=== PATIENT | male | born 1945 | race Caucasian/White ===

== ENCOUNTER 2016-10-20 11:29 | Inpatient (IN) | payer OTHER, MEDICARE ==
[~2016-10-20] VITALS: Ht 182.9 cm; Wt 103.0 kg
[~2016-10-20 11:29] MED LIST: AMLO2.5T PO; ASPI81TA44 PO; BENZ100C15 PO; GUAI12003 PO; LEVO750T31 PO; OXYC1TAB9 PO; PROAIR HFA8.5 GM IH; Promethazine Hcl/Codeine PO
--- NOTE | 2016-10-20 12:18 | PHYS DOC ---
Past Medical History Past Medical History: No Pertinent History Past Surgical History: Other Additional Past Surgical Histo: jaw, r shoulder, r femur Alcohol Use: Occasionally Drug Use: None Adult General Chief Complaint Chief Complaint: SHORTNESS OF BREATH HPI HPI Patient is a 70 year old male who presents with in productive cough. He states this all started on night when he left work that he was so weak he could hardly function is been having a dry hacking cough. He states over the last several days this time productive. He was seen by his primary care physician and was given cough suppressants and told to follow-up in a few days if not better. He denies any fevers chills nausea vomiting but does have a productive cough. He denies any history of tobacco abuse. He has had a AAA repair with a stent in April 2016. So hadn't intermittent chest discomfort earlier today that lasted for a few seconds and then resolved. Currently does not have any chest pain. But he does complain about generalized weakness and dyspnea when he tries to get from one chair to another home. Review of Systems Review of Systems Constitutional: Denies fever or chills [] Eyes: Denies change in visual acuity, redness, or eye pain [] HENT: Denies nasal congestion or sore throat [] Respiratory: As if her cough and shortness of breath. Cardiovascular: No additional information not addressed in HPI [] GI: Denies abdominal pain, nausea, vomiting, bloody stools or diarrhea [] : Denies dysuria or hematuria [] Musculoskeletal: Denies back pain or joint pain [] Integument: Denies rash or skin lesions [] Neurologic: Denies headache, focal weakness or sensory changes [] Endocrine: Denies polyuria or polydipsia [] Current Medications Current Medications Current Medications Medications (Trade) Dose Ordered Sig/Jael Start Time Stop Time Status Last Admin Dose Admin Iohexol (Omnipaque 300 Mg/ml) 75 ml 1X ONCE 10/20/16 14:30 10/20/16 14:31 DC 10/20/16 15:28 75 ML Allergies Allergies Allergies Coded Allergies Type Severity Reaction Last Updated Verified No Known Drug Allergies 07/23/14 No Physical Exam Physical Exam Constitutional: Well developed, well nourished, no acute distress, non-toxic appearance. [] HENT: Normocephalic, atraumatic, bilateral external ears normal, oropharynx moist, no oral exudates, nose normal. [] Eyes: PERRLA, EOMI, conjunctiva normal, no discharge. [] Neck: Normal range of motion, no tenderness, supple, no stridor. [] Cardiovascular: Tachycardic with a regular rhythm, no murmur [] Lungs & Thorax: Bilateral breath sounds clear to auscultation [] Abdomen: Bowel sounds normal, soft, no tenderness, no masses, no pulsatile masses. [] Skin: Warm, dry, no erythema, no rash. [] Back: No tenderness, no CVA tenderness. [] Extremities: No tenderness, no cyanosis, no clubbing, ROM intact, no edema. [] Neurologic: Alert and oriented X 3, normal motor function, normal sensory function, no focal deficits noted. [] Psychologic: Affect normal, judgement normal, mood normal. [] Current Patient Data Vital Signs Vital Signs Date Time Temp Pulse Resp B/P (MAP) Pulse Ox O2 Delivery O2 Flow Rate FiO2 10/20/16 14:20 78 20 143/74 (97) 97 10/20/16 13:20 Nasal Cannula 2.0 10/20/16 12:21 98.7 98.7 Lab Values Laboratory Tests Test 10/20/16 12:32 White Blood Count 13.6 x10^3/uL (4.0-11.0) H Red Blood Count 4.73 x10^6/uL (4.30-5.70) Hemoglobin 14.4 g/dL (13.0-17.5) Hematocrit 42.0 % (39.0-53.0) Mean Corpuscular Volume 89 fL (79-100) Mean Corpuscular Hemoglobin 30 pg (25-35) Mean Corpuscular Hemoglobin Concent 34 g/dL (31-37) Red Cell Distribution Width 15.5 % (11.5-14.5) H Platelet Count 206 x10^3/uL (140-400) Neutrophils (%) (Auto) 74 % (31-73) H Lymphocytes (%) (Auto) 14 % (24-48) L Monocytes (%) (Auto) 12 % (0-9) H Eosinophils (%) (Auto) 0 % (0-3) Basophils (%) (Auto) 1 % (0-3) Neutrophils # (Auto) 10.1 x10^3uL (1.8-7.7) H Lymphocytes # (Auto) 1.9 x10^3/uL (1.0-4.8) Monocytes # (Auto) 1.6 x10^3/uL (0.0-1.1) H Eosinophils # (Auto) 0.0 x10^3/uL (0.0-0.7) Basophils # (Auto) 0.1 x10^3/uL (0.0-0.2) Prothrombin Time 13.4 SEC (11.7-14.0) Prothrombin Time INR 1.1 (0.8-1.1) D-Dimer (Qi) 2.44 ug/mlFEU (0.00-0.50) H Sodium Level 141 mmol/L (136-145) Potassium Level 3.9 mmol/L (3.5-5.1) Chloride Level 105 mmol/L (98-107) Carbon Dioxide Level 28 mmol/L (21-32) Anion Gap 8 (6-14) Blood Urea Nitrogen 17 mg/dL (8-26) Creatinine 0.9 mg/dL (0.7-1.3) Estimated GFR (Cockcroft-Gault) 82.9 Glucose Level 108 mg/dL (70-99) H Calcium Level 9.5 mg/dL (8.5-10.1) Magnesium Level 2.1 mg/dL (1.8-2.4) Total Bilirubin 0.8 mg/dL (0.2-1.0) Direct Bilirubin 0.3 mg/dL (0.0-0.2) H Aspartate Amino Transferase (AST) 35 U/L (15-37) Alanine Aminotransferase (ALT) 35 U/L (16-63) Alkaline Phosphatase 187 U/L (46-116) H Creatine Kinase 235 U/L (39-308) Creatine Kinase MB (Mass) 1.4 ng/mL (0.0-3.6) Creatine Kinase MB Relative Index 0.6 % (0-4) Troponin I Quantitative < 0.017 ng/mL (0.000-0.055) ZN-Opt-E-Type Natriuretic Peptide 2015 pg/mL (0-124) H Total Protein 7.9 g/dL (6.4-8.2) Albumin 3.4 g/dL (3.4-5.0) Lipase 122 U/L (73-393) Thyroid Stimulating Hormone (TSH) 2.006 uIU/mL (0.358-3.74) Laboratory Tests 10/20/16 12:32 Laboratory Tests 10/20/16 12:32 EKG EKG EKG shows irregular rhythm 310 beats minute with left axis deviation, no ST elevations, T-wave inversions noted in lead 3, QTC 479 ms as interpreted me. Radiology/Procedures Radiology/Procedures [facility] [address] [place] [address] IMAGING REPORT Signed PATIENT: SOFIA CHU ACCOUNT: [id number] : 1945 LOCATION: ER AGE: 70 SEX: M EXAM STATUS: PRE ER ORD. PHYSICIAN: SUSANA BOB MD REASON: soa PROCEDURE: PORTABLE CHEST 1V Indication cough. 2 AP views of the chest were obtained. Comparison is made to an exam 04/23/2016. There is mild cardiomegaly. There is no gross congestive heart failure. Aeration of the left lung has improved relative to the previous exam and there is no significant pleural fluid on today's study in either lung. There is some modest volume loss at the left lung base which may reflect atelectasis or scar. Underlying pneumonia is not entirely excluded. Tortuous thoracic aorta is noted similar to the previous study. IMPRESSION: Mild cardiomegaly. No significant pleural fluid in either lung on today's study. Slight volume loss at the left lung base likely reflects atelectasis or scar. Underlying pneumonia is not entirely excluded DICTATED and SIGNED BY: LAURA FLANAGAN MD DATE: 10/20/16 1257 CC: SUSANA BOB MD; BHAVNA RICHEY PA ~ [facility] [address] [place], [place] [id number] IMAGING REPORT Signed PATIENT: SOFIA CHU ACCOUNT: [id number] : 1945 LOCATION: [address] [place] [address] AGE: 70 SEX: M EXAM STATUS: ADM IN ORD. PHYSICIAN: SUSANA BOB MD REASON: r/o PE PROCEDURE: CT ANGIOGRAPHY CHEST Indication shortness of breath cough. Axial images of the chest were obtained. The examination was targeted for the detection of pulmonary embolus. 75 cc of Omnipaque 300 was administered. MIP images were generated and reviewed. Note is made of a previous CT examination of the chest 07/23/2014. There is a low-density mass off the right kidney compatible with a cyst. An acute or definite significant finding in the upper abdomen is not seen. Moderate-sized hiatus hernia is noted. There is some coronary artery calcification. The thoracic aorta appears unremarkable. There is no significant hilar or mediastinal adenopathy. The study is negative for pulmonary embolus. A dominant soft tissue mass in either lung is not seen. There is volume loss in the left lower lobe and to a lesser extent in the lingula. Some of this may be chronic. Recurrent pneumonia is not entirely excluded. The volume loss and patchy nonsolid opacities in the lingula and left lower lobe are less pronounced than previously. There is, additionally, a patchy nonsolid opacity in the right lower lobe on today's examination suggesting an inflammatory focus. IMPRESSION: Negative study for pulmonary embolus. Patchy nonsolid opacities at the lung bases. The one at the right lung base is new. Pneumonia is suspect at the right lung base. Some of the findings at the left lung base may be chronic and reflective of fibrosis. Recurrent pneumonia at the left lung base is not excluded PQRS Compliance Statement: One or more of the following individualized dose reduction techniques were utilized for this examination: 1. Automated exposure control 2. Adjustment of the mA and/or kV according to patient size 3. Use of iterative reconstruction technique DICTATED and SIGNED BY: LAURA FLANAGAN MD DATE: 10/20/16 160 CC: SUSANA BOB MD; MAYITO FELDMAN MD; MARCOS MARTINEZ ~ Impressions: Dyspnea on exertion Cough History of AAA repair Pneumonia Course & Med Decision Making Course & Med Decision Making Pertinent Labs and Imaging studies reviewed. (See chart for details) She presents with history of shortness of breath, mildly productive cough over the last several days. His white blood cell counts elevated without any bandemia , he does not have a fever his BNP is also elevated. Chest x-ray shows possible infiltrate. D-dimer is elevated. CT angiogram of his chest is pending at this time to rule out a PE. Patient is being admitted to the hospitalist in stable condition this time with the above test pending. Interim orders have been written. Ct angio comes back negative for PE but likely right lower lobe pneumonia. We' ll start Rocephin and a Zithromax. Dragon Disclaimer Dragon Disclaimer This electronic medical record was generated, in whole or in part, using a voice recognition dictation system. Departure Departure Impression: Primary Impression: Dyspnea Disposition: ADMITTED INPATIENT Admitting Physician: Other Condition: STABLE Referrals: BHAVNA RICHEY (PCP) SUSANA BOB MD Oct 20, 2016 12:18
--- NOTE | 2016-10-20 12:41 | EKG ---
[facility] [address] [place] [address] Test Date: 2016-10-20 Test Time: 12:21:33 Pat Name: SOFIA CHU Department: Room: Gender: M Security Operations Manager: : 1945 Requested By: SUSANA BOB Order Number: [id number] Reading MD: Zenobia Paulson Measurements Intervals [place] Rate: 110 P: NC: QRS: -17 QRSD: 98 T: -15 QT: 350 QTc: 479 Interpretive Statements ATRIAL FIBRILLATION LEFTWARD AXIS LOW LIMB LEAD VOLTAGE ABNORMAL ECG RI6.01 Compared to ECG 04/19/2016 17:11:37 No significant changes Electronically Signed On 10-20-2016 21:30:05 CDT by Zenobia Paulson
[2016-10-20 12:45] LABS: BASO # 0.1 x10^3/uL (0.0-0.2); BASO % 1 % (0-3); EOS % 0 % (0-3); HEMOGLOBIN 14.4 g/dL (13.0-17.5); LYMPH # 1.9 x10^3/uL (1.0-4.8); LYMPH % 14 % (24-48); MEAN CORPUSCULAR HEMOGLOBIN 30 pg (25-35); MEAN CORPUSCULAR HGB CONC 34 g/dL (31-37); MEAN CORPUSCULAR VOLUME 89 fL (79-100); MONO % 12 % (0-9); NEUT % 74 % (31-73); PLATELET COUNT 206 x10^3/uL (140-400); RED BLOOD COUNT 4.73 x10^6/uL (4.30-5.70); RED CELL DISTRIBUTION WIDTH 15.5 % (11.5-14.5); WHITE BLOOD COUNT 13.6 x10^3/uL (4.0-11.0)
[2016-10-20 12:54] LABS: INR 1.1 (0.8-1.1); PROTHROMBIN TIME PATIENT 13.4 SEC (11.7-14.0)
[2016-10-20 12:58] LABS: CALCIUM 9.5 mg/dL (8.5-10.1); CREATININE 0.9 mg/dL (0.7-1.3); GFR 82.9; POTASSIUM 3.9 mmol/L (3.5-5.1)
--- NOTE | 2016-10-20 13:02 | RAD ---
Indication cough. 2 AP views of the chest were obtained. Comparison is made to an exam 04/23/2016. There is mild cardiomegaly. There is no gross congestive heart failure. Aeration of the left lung has improved relative to the previous exam and there is no significant pleural fluid on today's study in either lung. There is some modest volume loss at the left lung base which may reflect atelectasis or scar. Underlying pneumonia is not entirely excluded. Tortuous thoracic aorta is noted similar to the previous study. IMPRESSION: Mild cardiomegaly. No significant pleural fluid in either lung on today's study. Slight volume loss at the left lung base likely reflects atelectasis or scar. Underlying pneumonia is not entirely excluded
[2016-10-20 13:04] LABS: ALBUMIN 3.4 g/dL (3.4-5.0); DIRECT BILIRUBIN 0.3 mg/dL (0.0-0.2); MAGNESIUM 2.1 mg/dL (1.8-2.4); TOTAL BILIRUBIN 0.8 mg/dL (0.2-1.0); TOTAL PROTEIN 7.9 g/dL (6.4-8.2)
[2016-10-20 13:28] LABS: CKMB MASS 1.4 ng/mL (0.0-3.6)
[2016-10-20] MEDS ORDERED: IOHEXOL 300 MG/ML 75 ML VIAL IV ONE (14:30)
[2016-10-20] MEDS ORDERED: ONDANSETRON PF 4 MG/2 ML VIAL. IV PRN (14:45)
[2016-10-20] MEDS ORDERED: CONTRAST GIVEN MC PRN (14:45)
[2016-10-20 16:05] VITALS: BP 163/74
--- NOTE | 2016-10-20 16:18 | RAD ---
Indication shortness of breath cough. Axial images of the chest were obtained. The examination was targeted for the detection of pulmonary embolus. 75 cc of Omnipaque 300 was administered. MIP images were generated and reviewed. Note is made of a previous CT examination of the chest 07/23/2014. There is a low-density mass off the right kidney compatible with a cyst. An acute or definite significant finding in the upper abdomen is not seen. Moderate-sized hiatus hernia is noted. There is some coronary artery calcification. The thoracic aorta appears unremarkable. There is no significant hilar or mediastinal adenopathy. The study is negative for pulmonary embolus. A dominant soft tissue mass in either lung is not seen. There is volume loss in the left lower lobe and to a lesser extent in the lingula. Some of this may be chronic. Recurrent pneumonia is not entirely excluded. The volume loss and patchy nonsolid opacities in the lingula and left lower lobe are less pronounced than previously. There is, additionally, a patchy nonsolid opacity in the right lower lobe on today's examination suggesting an inflammatory focus. IMPRESSION: Negative study for pulmonary embolus. Patchy nonsolid opacities at the lung bases. The one at the right lung base is new. Pneumonia is suspect at the right lung base. Some of the findings at the left lung base may be chronic and reflective of fibrosis. Recurrent pneumonia at the left lung base is not excluded PQRS Compliance Statement: One or more of the following individualized dose reduction techniques were utilized for this examination: 1. Automated exposure control 2. Adjustment of the mA and/or kV according to patient size 3. Use of iterative reconstruction technique
[2016-10-20] MEDS ORDERED: PRED20TA PO (16:34)
[2016-10-20] MEDS ORDERED: CLAR500T PO (16:38)
[2016-10-20] MEDS ORDERED: GUAI600T47 PO (16:41)
[2016-10-20] MEDS ORDERED: AZITHRMYCN 500MG IVPB FOR OMNI 250 ML IV ONE (18:00)
[2016-10-20] MEDS ORDERED: LISINOPRIL 5 MG TABLET. PO ONE (18:30)
[2016-10-20] MEDS: ACETAMINOPHEN/CODEINE 300/30MG TABLET. PO PRN (18:31)
[2016-10-20 19:05] VITALS: BP 133/64
[2016-10-20] MEDS: ALBUTEROL SULFATE 2.5 MG/3 ML NEBU. NEB SCH (20:36)
--- NOTE | 2016-10-20 20:49 | HP ---
ADMIT DATE: 10/20/2016 CHIEF COMPLAINT: Cough, shortness of breath. HISTORY OF PRESENT ILLNESS: The patient is a 70-year-old gentleman, in typically fairly good state of health who presented to the Emergency Room with ongoing shortness of breath and productive cough. He relates the symptoms actually started on when he was starting to feel rather poorly getting more short of breath and a gravelly voice. He actually had worked the entire day despite feeling miserable. However, the following day, he was too sick to go to work. He went to an urgent care to his primary care physician, Dr. Wynn who prescribed him antibiotics and a cough medicine with codeine. Symptoms, however, did not improve and the patient decided to present to the hospital. He denies any fevers, any chest pain. He has general weakness that he can barely move around. In the Emergency Room, a CTA was obtained which shows patchy nonsolid opacities in the lung bases. Pneumonia is suspected in the right lung base. Other findings on the left may be chronic and reflective of fibrosis, although recurrent pneumonia is not excluded. PAST MEDICAL HISTORY: Essentially negative say for AAA repair in April of last year. FAMILY HISTORY: The patient is not aware of any disorders in his family. SOCIAL HISTORY: Lives with his son and family. No smoking, no toxic habits. ALLERGIES: No known drug allergies. HOME MEDICATIONS: Reconciled with MAR. REVIEW OF SYSTEMS: Positive as per HPI. Rest of organ system review is negative. PHYSICAL EXAMINATION: VITAL SIGNS: From today show a blood pressure of 163/74, heart rate of 89, respiratory rate at 20. He is afebrile. GENERAL: This is an obese 70-year-old gentleman, awake, alert, in no acute distress. HEENT: Shows no scleral icterus. LUNGS: Have rales in bilateral bases. ABDOMEN: Obese, positive bowel sounds. EXTREMITIES: Show no edema. SKIN: Warm, soft and dry. LABORATORY DATA: CBC with a WBC of 13.6, hemoglobin 14.4, platelets of 206. Chemistries with a BUN and creatinine of 17 and 0.9, normal electrolytes. LFTs with an alkaline phosphatase of 187. ProBNP 2015. IMAGING STUDIES: CTA of the chest as above. ASSESSMENT AND PLAN: The patient is a 70-year-old gentleman with right lower lobe pneumonia per CTA. We will continue antibiotics that have been started in the Emergency Room with azithromycin and ceftriaxone. He will receive mucolytics as well as a cough suppressant with codeine to let him sleep at night. Blood pressure is fairly high. He relates that this actually has never been as high in the past, but has been on Norvasc in the past. We will continue medications here. We will monitor his labs. IV fluids are running. He will get a regular diet. MAYITO FELDMAN MD DR: UR/nts JOB#: [id number] / [id number] BRENNAN
[2016-10-20 23:05] VITALS: BP 163/92
[2016-10-21] MEDS: ACETAMINOPHEN/CODEINE 300/30MG TABLET. PO PRN (02:49)
[2016-10-21 03:05] VITALS: BP 149/79
[2016-10-21 03:57] LABS: BASO % 0 % (0-3); EOS % 0 % (0-3); HEMATOCRIT 38.9 % (39.0-53.0); LYMPH # 1.6 x10^3/uL (1.0-4.8); LYMPH % 15 % (24-48); MEAN CORPUSCULAR HEMOGLOBIN 30 pg (25-35); MEAN CORPUSCULAR HGB CONC 33 g/dL (31-37); MEAN CORPUSCULAR VOLUME 91 fL (79-100); MONO % 13 % (0-9); NEUT % 72 % (31-73); PLATELET COUNT 175 x10^3/uL (140-400); RED BLOOD COUNT 4.29 x10^6/uL (4.30-5.70); RED CELL DISTRIBUTION WIDTH 15.7 % (11.5-14.5); WHITE BLOOD COUNT 10.5 x10^3/uL (4.0-11.0)
[2016-10-21 05:00] LABS: CALCIUM 8.4 mg/dL (8.5-10.1); CREATININE 0.8 mg/dL (0.7-1.3); POTASSIUM 3.7 mmol/L (3.5-5.1)
[2016-10-21 07:00] VITALS: BP 131/76
[2016-10-21] MEDS: ALBUTEROL SULFATE 2.5 MG/3 ML NEBU. NEB SCH ×4 (07:56→21:24)
[2016-10-21] MEDS: ASPIRIN CHEWABLE 81 MG TABLET. PO SCH (08:04)
[2016-10-21] MEDS: amLODIPine BESYLATE 2.5 MG TABLET PO SCH (08:04)
[2016-10-21 11:00] VITALS: BP 110/66
--- NOTE | 2016-10-21 13:01 | PDOC ---
PROGRESS NOTES Chief Complaint Chief Complaint PNA right lower lobe pneumonia per CTA. cont antibiotics azithromycin and ceftriaxone. htn gen weaekness and debility chronic diatolic CHF History of Present Illness History of Present Illness cont CUrrent Pulm following pt feels slowly improved Vitals Vitals Vital Signs Date Time Temp Pulse Resp B/P (MAP) Pulse Ox O2 Delivery O2 Flow Rate FiO2 10/21/16 11:51 Nasal Cannula 2.0 10/21/16 11:00 98.4 78 20 110/66 (81) 94 98.4 Physical Exam General: Alert, Oriented X3, Cooperative, No acute distress Heart: Regular rate, No murmurs Lungs: Clear, Other Abdomen: Normal bowel sounds Extremities: No clubbing, No cyanosis, No edema Skin: No rashes, No breakdown Labs LABS Laboratory Tests Test 10/20/16 20:50 10/21/16 02:45 Troponin I Quantitative < 0.017 ng/mL (0.000-0.055) < 0.017 ng/mL (0.000-0.055) White Blood Count 10.5 x10^3/uL (4.0-11.0) Red Blood Count 4.29 x10^6/uL (4.30-5.70) Hemoglobin 13.0 g/dL (13.0-17.5) Hematocrit 38.9 % (39.0-53.0) Mean Corpuscular Volume 91 fL (79-100) Mean Corpuscular Hemoglobin 30 pg (25-35) Mean Corpuscular Hemoglobin Concent 33 g/dL (31-37) Red Cell Distribution Width 15.7 % (11.5-14.5) Platelet Count 175 x10^3/uL (140-400) Neutrophils (%) (Auto) 72 % (31-73) Lymphocytes (%) (Auto) 15 % (24-48) Monocytes (%) (Auto) 13 % (0-9) Eosinophils (%) (Auto) 0 % (0-3) Basophils (%) (Auto) 0 % (0-3) Neutrophils # (Auto) 7.6 x10^3uL (1.8-7.7) Lymphocytes # (Auto) 1.6 x10^3/uL (1.0-4.8) Monocytes # (Auto) 1.4 x10^3/uL (0.0-1.1) Eosinophils # (Auto) 0.0 x10^3/uL (0.0-0.7) Basophils # (Auto) 0.0 x10^3/uL (0.0-0.2) Sodium Level 142 mmol/L (136-145) Potassium Level 3.7 mmol/L (3.5-5.1) Chloride Level 106 mmol/L (98-107) Carbon Dioxide Level 27 mmol/L (21-32) Anion Gap 9 (6-14) Blood Urea Nitrogen 14 mg/dL (8-26) Creatinine 0.8 mg/dL (0.7-1.3) Estimated GFR (Cockcroft-Gault) 95.0 Glucose Level 132 mg/dL (70-99) Calcium Level 8.4 mg/dL (8.5-10.1) Review of Systems Review of Systems no n/v/d Assessment and Plan Assessmemt and Plan Problems Medical Problems: (1) Dyspnea Status: Acute Problems: Comment Review of Relevant I have reviewed the following items abdon (where applicable) has been applied. Labs Laboratory Tests Test 10/20/16 12:32 10/20/16 20:50 10/21/16 02:45 White Blood Count 13.6 x10^3/uL (4.0-11.0) 10.5 x10^3/uL (4.0-11.0) Red Blood Count 4.73 x10^6/uL (4.30-5.70) 4.29 x10^6/uL (4.30-5.70) Hemoglobin 14.4 g/dL (13.0-17.5) 13.0 g/dL (13.0-17.5) Hematocrit 42.0 % (39.0-53.0) 38.9 % (39.0-53.0) Mean Corpuscular Volume 89 fL (79-100) 91 fL (79-100) Mean Corpuscular Hemoglobin 30 pg (25-35) 30 pg (25-35) Mean Corpuscular Hemoglobin Concent 34 g/dL (31-37) 33 g/dL (31-37) Red Cell Distribution Width 15.5 % (11.5-14.5) 15.7 % (11.5-14.5) Platelet Count 206 x10^3/uL (140-400) 175 x10^3/uL (140-400) Neutrophils (%) (Auto) 74 % (31-73) 72 % (31-73) Lymphocytes (%) (Auto) 14 % (24-48) 15 % (24-48) Monocytes (%) (Auto) 12 % (0-9) 13 % (0-9) Eosinophils (%) (Auto) 0 % (0-3) 0 % (0-3) Basophils (%) (Auto) 1 % (0-3) 0 % (0-3) Neutrophils # (Auto) 10.1 x10^3uL (1.8-7.7) 7.6 x10^3uL (1.8-7.7) Lymphocytes # (Auto) 1.9 x10^3/uL (1.0-4.8) 1.6 x10^3/uL (1.0-4.8) Monocytes # (Auto) 1.6 x10^3/uL (0.0-1.1) 1.4 x10^3/uL (0.0-1.1) Eosinophils # (Auto) 0.0 x10^3/uL (0.0-0.7) 0.0 x10^3/uL (0.0-0.7) Basophils # (Auto) 0.1 x10^3/uL (0.0-0.2) 0.0 x10^3/uL (0.0-0.2) Prothrombin Time 13.4 SEC (11.7-14.0) Prothromb Time International Ratio 1.1 (0.8-1.1) D-Dimer (Qi) 2.44 ug/mlFEU (0.00-0.50) Sodium Level 141 mmol/L (136-145) 142 mmol/L (136-145) Potassium Level 3.9 mmol/L (3.5-5.1) 3.7 mmol/L (3.5-5.1) Chloride Level 105 mmol/L (98-107) 106 mmol/L (98-107) Carbon Dioxide Level 28 mmol/L (21-32) 27 mmol/L (21-32) Anion Gap 8 (6-14) 9 (6-14) Blood Urea Nitrogen 17 mg/dL (8-26) 14 mg/dL (8-26) Creatinine 0.9 mg/dL (0.7-1.3) 0.8 mg/dL (0.7-1.3) Estimated GFR (Cockcroft-Gault) 82.9 95.0 Glucose Level 108 mg/dL (70-99) 132 mg/dL (70-99) Calcium Level 9.5 mg/dL (8.5-10.1) 8.4 mg/dL (8.5-10.1) Magnesium Level 2.1 mg/dL (1.8-2.4) Total Bilirubin 0.8 mg/dL (0.2-1.0) Direct Bilirubin 0.3 mg/dL (0.0-0.2) Aspartate Amino Transf (AST/SGOT) 35 U/L (15-37) Alanine Aminotransferase (ALT/SGPT) 35 U/L (16-63) Alkaline Phosphatase 187 U/L (46-116) Creatine Kinase 235 U/L (39-308) Creatine Kinase MB (Mass) 1.4 ng/mL (0.0-3.6) Creatine Kinase MB Relative Index 0.6 % (0-4) Troponin I Quantitative < 0.017 ng/mL (0.000-0.055) < 0.017 ng/mL (0.000-0.055) < 0.017 ng/mL (0.000-0.055) SE-Jcn-J-Type Natriuretic Peptide 2015 pg/mL (0-124) Total Protein 7.9 g/dL (6.4-8.2) Albumin 3.4 g/dL (3.4-5.0) Lipase 122 U/L (73-393) Thyroid Stimulating Hormone (TSH) 2.006 uIU/mL (0.358-3.74) Laboratory Tests Test 10/20/16 20:50 10/21/16 02:45 Troponin I Quantitative < 0.017 ng/mL (0.000-0.055) < 0.017 ng/mL (0.000-0.055) White Blood Count 10.5 x10^3/uL (4.0-11.0) Red Blood Count 4.29 x10^6/uL (4.30-5.70) Hemoglobin 13.0 g/dL (13.0-17.5) Hematocrit 38.9 % (39.0-53.0) Mean Corpuscular Volume 91 fL (79-100) Mean Corpuscular Hemoglobin 30 pg (25-35) Mean Corpuscular Hemoglobin Concent 33 g/dL (31-37) Red Cell Distribution Width 15.7 % (11.5-14.5) Platelet Count 175 x10^3/uL (140-400) Neutrophils (%) (Auto) 72 % (31-73) Lymphocytes (%) (Auto) 15 % (24-48) Monocytes (%) (Auto) 13 % (0-9) Eosinophils (%) (Auto) 0 % (0-3) Basophils (%) (Auto) 0 % (0-3) Neutrophils # (Auto) 7.6 x10^3uL (1.8-7.7) Lymphocytes # (Auto) 1.6 x10^3/uL (1.0-4.8) Monocytes # (Auto) 1.4 x10^3/uL (0.0-1.1) Eosinophils # (Auto) 0.0 x10^3/uL (0.0-0.7) Basophils # (Auto) 0.0 x10^3/uL (0.0-0.2) Sodium Level 142 mmol/L (136-145) Potassium Level 3.7 mmol/L (3.5-5.1) Chloride Level 106 mmol/L (98-107) Carbon Dioxide Level 27 mmol/L (21-32) Anion Gap 9 (6-14) Blood Urea Nitrogen 14 mg/dL (8-26) Creatinine 0.8 mg/dL (0.7-1.3) Estimated GFR (Cockcroft-Gault) 95.0 Glucose Level 132 mg/dL (70-99) Calcium Level 8.4 mg/dL (8.5-10.1) Medications Current Medications Iohexol (Omnipaque 300 Mg/ml) 75 ml 1X ONCE IV Last administered on 10/20/16t 15:28; Start 10/20/16 at 14:30; Stop 10/20/16 at 14:31; Status DC Info (Do NOT chart on this entry -- for MONITORING) 1 each PRN DAILY PRN MC SEE COMMENTS; Start 10/20/16 at 14:45; Stop 10/22/16 at 14:44 Ondansetron HCl (Zofran) 4 mg PRN Q8HRS PRN IV NAUSEA/VOMITING; Start 10/20/16 at 14:45; Stop 10/21/16 at 14:44 Ceftriaxone Sodium 1 gm/ Sodium Chloride 50 ml @ 100 mls/hr Q24H IV Last administered on 10/20/16 18:19; Start 10/20/16 at 18:00 Azithromycin 250 ml @ 250 mls/hr 1X ONCE IV Last administered on 10/20/16 19 :12; Start 10/20/16 at 18:00; Stop 10/20/16 at 18:59; Status DC Amlodipine Besylate (Norvasc) 2.5 mg DAILY PO Last administered on 10/21/16 08 :04; Start 10/21/16 at 09:00 Aspirin (Children'S Aspirin) 81 mg DAILYWBKFT PO Last administered on 08:04; Start 10/21/16 at 08:00 Guaifenesin (Mucinex) 600 mg BID PO Last administered on 10/21/16 08:03; Start 10/20/16 at 21:00 Acetaminophen/ Codeine Phosphate (Tylenol #3) 1 tab PRN Q4HRS PRN PO PAIN Last administered on 10/21/16 02:49; Start 10/20/16 at 18:30 Albuterol Sulfate (Ventolin Neb Soln) 2.5 mg RTQID NEB Last administered on 11:50; Start 10/20/16 at 20:00 Lisinopril (Prinivil) 5 mg 1X ONCE PO Last administered on 10/20/16 18:31; Start 10/20/16 at 18:30; Stop 10/20/16 at 18:31; Status DC Active Scripts Active [Promethazine Hcl/Codeine] 5 ML Syrup 5 Ml PO PRN Q6HRS PRN Amlodipine Besylate 2.5 Mg Tablet 2.5 Mg PO DAILY Children's Aspirin (Aspirin) 81 Mg Tab.chew 81 Mg PO DAILYWBKFT Reported Mucinex (Guaifenesin) 600 Mg Tablet.er 1 Tab PO BID Clarithromycin 500 Mg Tablet 2 Tab PO DAILY 10 Days Prednisone 20 Mg Tablet Tab PO DAILY 3 tabs daily for 3 days, then 2 tabs daily for 3 days, then 1 daily for 3 days, 1/2 tab daily for 4 days, then stop Vitals/I & O Vital Sign - Last 24 Hours 10/20/16 10/20/16 10/20/16 10/20/16 13:20 14:20 14:50 15:20 Pulse 88 78 84 88 Resp 14 20 18 14 B/P (MAP) 156/81 (106) 143/74 (97) 147/73 (97) 167/79 (108) Pulse Ox 97 93 94 O2 Delivery Nasal Cannula Nasal Cannula Nasal Cannula O2 Flow Rate 2.0 2.0 2.0 10/20/16 10/20/16 10/20/16 10/20/16 16:05 16:05 16:43 18:31 Temp 98.7 98.7 98.7 98.7 Pulse 89 89 89 Resp 20 20 B/P (MAP) 163/74 (103) 163/74 (103) 163/74 Pulse Ox 93 93 O2 Delivery Nasal Cannula Nasal Cannula Nasal Cannula O2 Flow Rate 3.0 3.0 2.0 10/20/16 10/20/16 10/20/16 10/20/16 19:05 20:00 20:43 23:05 Temp 98.6 98.0 98.6 98.0 Pulse 92 97 Resp 20 22 B/P (MAP) 133/64 (87) 163/92 (115) Pulse Ox 91 98 92 O2 Delivery Nasal Cannula Room Air Room Air Nasal Cannula O2 Flow Rate 3.0 3.0 10/21/16 10/21/16 10/21/16 10/21/16 02:49 03:05 04:00 07:00 Temp 100.3 98.5 100.3 98.5 Pulse 99 81 Resp 16 24 18 22 B/P (MAP) 149/79 (102) 131/76 (94) Pulse Ox 91 93 90 O2 Delivery Nasal Cannula Room Air Nasal Cannula Room Air O2 Flow Rate 3.0 2.0 10/21/16 10/21/16 10/21/16 10/21/16 07:59 08:00 08:04 11:00 Temp 98.4 98.4 Pulse 81 78 Resp 20 B/P (MAP) 131/76 110/66 (81) Pulse Ox 82 94 O2 Delivery Room Air Room Air Nasal Cannula O2 Flow Rate 3.0 10/21/16 11:51 O2 Delivery Nasal Cannula O2 Flow Rate 2.0 Intake and Output 10/20/16 10/20/16 10/21/16 14:59 22:59 06:59 Intake Total 100 ml 100 ml Output Total 350 ml 500 ml Balance -250 ml -400 ml ALEXANDER JOHNSON MD Oct 21, 2016 13:01
[2016-10-21] MEDS: AZITHROMYCIN 250 MG TABLET. PO SCH (13:47)
[2016-10-21 15:00] VITALS: BP 141/94
[2016-10-21] MEDS: guaiFENesin/CODEINE 100mg/10mg 5 ML LIQUID PO PRN ×2 (17:20→23:03)
--- NOTE | 2016-10-21 17:27 | PDOC ---
PULMONARY PROGRESS NOTES Vitals Vital Signs Date Time Temp Pulse Resp B/P (MAP) Pulse Ox O2 Delivery O2 Flow Rate FiO2 10/21/16 15:44 Nasal Cannula 2.0 10/21/16 15:00 98.5 99 20 141/94 (110) 93 98.5 General: Alert, Oriented X4 Lungs: Clear, Other Cardiovascular: S1 Abdomen: Soft Extremities: No Edema Labs Laboratory Tests Test 10/20/16 12:32 10/20/16 20:50 10/21/16 02:45 White Blood Count 13.6 x10^3/uL (4.0-11.0) 10.5 x10^3/uL (4.0-11.0) Red Blood Count 4.73 x10^6/uL (4.30-5.70) 4.29 x10^6/uL (4.30-5.70) Hemoglobin 14.4 g/dL (13.0-17.5) 13.0 g/dL (13.0-17.5) Hematocrit 42.0 % (39.0-53.0) 38.9 % (39.0-53.0) Mean Corpuscular Volume 89 fL (79-100) 91 fL (79-100) Mean Corpuscular Hemoglobin 30 pg (25-35) 30 pg (25-35) Mean Corpuscular Hemoglobin Concent 34 g/dL (31-37) 33 g/dL (31-37) Red Cell Distribution Width 15.5 % (11.5-14.5) 15.7 % (11.5-14.5) Platelet Count 206 x10^3/uL (140-400) 175 x10^3/uL (140-400) Neutrophils (%) (Auto) 74 % (31-73) 72 % (31-73) Lymphocytes (%) (Auto) 14 % (24-48) 15 % (24-48) Monocytes (%) (Auto) 12 % (0-9) 13 % (0-9) Eosinophils (%) (Auto) 0 % (0-3) 0 % (0-3) Basophils (%) (Auto) 1 % (0-3) 0 % (0-3) Neutrophils # (Auto) 10.1 x10^3uL (1.8-7.7) 7.6 x10^3uL (1.8-7.7) Lymphocytes # (Auto) 1.9 x10^3/uL (1.0-4.8) 1.6 x10^3/uL (1.0-4.8) Monocytes # (Auto) 1.6 x10^3/uL (0.0-1.1) 1.4 x10^3/uL (0.0-1.1) Eosinophils # (Auto) 0.0 x10^3/uL (0.0-0.7) 0.0 x10^3/uL (0.0-0.7) Basophils # (Auto) 0.1 x10^3/uL (0.0-0.2) 0.0 x10^3/uL (0.0-0.2) Prothrombin Time 13.4 SEC (11.7-14.0) Prothromb Time International Ratio 1.1 (0.8-1.1) D-Dimer (Qi) 2.44 ug/mlFEU (0.00-0.50) Sodium Level 141 mmol/L (136-145) 142 mmol/L (136-145) Potassium Level 3.9 mmol/L (3.5-5.1) 3.7 mmol/L (3.5-5.1) Chloride Level 105 mmol/L (98-107) 106 mmol/L (98-107) Carbon Dioxide Level 28 mmol/L (21-32) 27 mmol/L (21-32) Anion Gap 8 (6-14) 9 (6-14) Blood Urea Nitrogen 17 mg/dL (8-26) 14 mg/dL (8-26) Creatinine 0.9 mg/dL (0.7-1.3) 0.8 mg/dL (0.7-1.3) Estimated GFR (Cockcroft-Gault) 82.9 95.0 Glucose Level 108 mg/dL (70-99) 132 mg/dL (70-99) Calcium Level 9.5 mg/dL (8.5-10.1) 8.4 mg/dL (8.5-10.1) Magnesium Level 2.1 mg/dL (1.8-2.4) Total Bilirubin 0.8 mg/dL (0.2-1.0) Direct Bilirubin 0.3 mg/dL (0.0-0.2) Aspartate Amino Transf (AST/SGOT) 35 U/L (15-37) Alanine Aminotransferase (ALT/SGPT) 35 U/L (16-63) Alkaline Phosphatase 187 U/L (46-116) Creatine Kinase 235 U/L (39-308) Creatine Kinase MB (Mass) 1.4 ng/mL (0.0-3.6) Creatine Kinase MB Relative Index 0.6 % (0-4) Troponin I Quantitative < 0.017 ng/mL (0.000-0.055) < 0.017 ng/mL (0.000-0.055) < 0.017 ng/mL (0.000-0.055) CC-Sgd-K-Type Natriuretic Peptide 2015 pg/mL (0-124) Total Protein 7.9 g/dL (6.4-8.2) Albumin 3.4 g/dL (3.4-5.0) Lipase 122 U/L (73-393) Thyroid Stimulating Hormone (TSH) 2.006 uIU/mL (0.358-3.74) Laboratory Tests Test 10/20/16 20:50 10/21/16 02:45 Troponin I Quantitative < 0.017 ng/mL (0.000-0.055) < 0.017 ng/mL (0.000-0.055) White Blood Count 10.5 x10^3/uL (4.0-11.0) Red Blood Count 4.29 x10^6/uL (4.30-5.70) Hemoglobin 13.0 g/dL (13.0-17.5) Hematocrit 38.9 % (39.0-53.0) Mean Corpuscular Volume 91 fL (79-100) Mean Corpuscular Hemoglobin 30 pg (25-35) Mean Corpuscular Hemoglobin Concent 33 g/dL (31-37) Red Cell Distribution Width 15.7 % (11.5-14.5) Platelet Count 175 x10^3/uL (140-400) Neutrophils (%) (Auto) 72 % (31-73) Lymphocytes (%) (Auto) 15 % (24-48) Monocytes (%) (Auto) 13 % (0-9) Eosinophils (%) (Auto) 0 % (0-3) Basophils (%) (Auto) 0 % (0-3) Neutrophils # (Auto) 7.6 x10^3uL (1.8-7.7) Lymphocytes # (Auto) 1.6 x10^3/uL (1.0-4.8) Monocytes # (Auto) 1.4 x10^3/uL (0.0-1.1) Eosinophils # (Auto) 0.0 x10^3/uL (0.0-0.7) Basophils # (Auto) 0.0 x10^3/uL (0.0-0.2) Sodium Level 142 mmol/L (136-145) Potassium Level 3.7 mmol/L (3.5-5.1) Chloride Level 106 mmol/L (98-107) Carbon Dioxide Level 27 mmol/L (21-32) Anion Gap 9 (6-14) Blood Urea Nitrogen 14 mg/dL (8-26) Creatinine 0.8 mg/dL (0.7-1.3) Estimated GFR (Cockcroft-Gault) 95.0 Glucose Level 132 mg/dL (70-99) Calcium Level 8.4 mg/dL (8.5-10.1) Medications Active Scripts Medications Dose Route/Sig Max Daily Dose Days Date Category Dose Instructions Mucinex (Guaifenesin) 600 Mg Tablet.er 1 Tab PO BID 10/20/16 Reported Clarithromycin 500 Mg Tablet 2 Tab PO DAILY 10 10/20/16 Reported Prednisone 20 Mg Tablet Tab PO DAILY 10/20/16 Reported 3 tabs daily for 3 days, then 2 tabs daily for 3 days, then 1 daily for 3 days, 1/2 tab daily for 4 days, then stop [Promethazine Hcl/Codeine] 5 ML Syrup 5 Ml PO PRN Q6HRS PRN 04/23/16 Rx Amlodipine Besylate 2.5 Mg Tablet 2.5 Mg PO DAILY 04/23/16 Rx Children's Aspirin (Aspirin) 81 Mg Tab.chew 81 Mg PO DAILYWBKFT 04/23/16 Rx Impression . full note dictated pneumonia agree with current rx ALEX MCKEE MD Oct 21, 2016 17:27
[2016-10-21] MEDS ORDERED: ALBUTEROL SULFATE 2.5 MG/3 ML NEBU. NEB PRN (17:30)
[2016-10-21 19:51] VITALS: BP 123/58
[2016-10-21 23:30] VITALS: BP 134/76
[2016-10-22 03:03] VITALS: BP 136/76
[2016-10-22 04:49] LABS: BASO % 0 % (0-3); EOS % 0 % (0-3); HEMATOCRIT 39.3 % (39.0-53.0); LYMPH # 2.4 x10^3/uL (1.0-4.8); LYMPH % 18 % (24-48); MEAN CORPUSCULAR HEMOGLOBIN 30 pg (25-35); MEAN CORPUSCULAR HGB CONC 33 g/dL (31-37); MEAN CORPUSCULAR VOLUME 91 fL (79-100); MONO % 12 % (0-9); NEUT % 70 % (31-73); PLATELET COUNT 185 x10^3/uL (140-400); RED BLOOD COUNT 4.32 x10^6/uL (4.30-5.70); RED CELL DISTRIBUTION WIDTH 15.7 % (11.5-14.5); WHITE BLOOD COUNT 13.3 x10^3/uL (4.0-11.0)
[2016-10-22 05:11] LABS: ALBUMIN 2.7 g/dL (3.4-5.0); ALBUMIN/GLOBULIN RATIO 0.7 (1.0-1.7); CALCIUM 8.9 mg/dL (8.5-10.1); CREATININE 0.9 mg/dL (0.7-1.3); GFR 82.9; POTASSIUM 3.5 mmol/L (3.5-5.1); TOTAL PROTEIN 6.7 g/dL (6.4-8.2)
--- NOTE | 2016-10-22 05:56 | CONS ---
DATE OF CONSULTATION: 10/21/2016 ATTENDING PHYSICIAN: Laura Deal M.D. REASON FOR CONSULTATION: The patient seen in pulmonary consultation at the request of Dr. Sosa for abnormal CT of the chest. HISTORY OF PRESENT ILLNESS: The patient is a 70-year-old that presented with increasing shortness of breath, cough, mostly nonproductive. He was seen by his primary care doctor sometime last week, was placed on Zithromax, prednisone tapering, guaifenesin, no improvement in symptoms, as a consequence, the patient presented and was admitted, part of his workup included CT angiogram, which I personally reviewed. There was no evidence of pulmonary emboli. There is basilar infiltrate compatible with pneumonia. The patient denies any reflux symptomatology. No prior history of hemoptysis. He has never smoked. PAST MEDICAL HISTORY: Remarkable for hypertension. He also had an AAA repair in 04/2016. FAMILY HISTORY: No family history of lung disorders. 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 ALLERGIES: No known drug allergies. REVIEW OF SYSTEMS: As indicated above, otherwise, a 10-point system was reviewed and negative. CURRENT MEDICATIONS: List was reviewed. Please see the MRAD. PHYSICAL EXAMINATION: VITAL SIGNS: T-max of 100.3. HEENT: Eyes, the sclerae were nonicteric. NECK: Jugular venous distention was not elevated. No lymphadenopathy. CHEST: Full expansion. LUNGS: Rhonchi bilaterally, expiratory wheeze. CARDIOVASCULAR: Regular rate and rhythm with S1, S2, no S3. ABDOMEN: Soft, nontender. EXTREMITIES: No clubbing, cyanosis, some edema. SKIN: Changes compatible with venous insufficiency and arterial insufficiency. NEUROLOGIC: The patient was awake, alert, following commands. A detailed neuro exam was not performed. LABORATORY DATA: Labs were reviewed. White count was elevated. Hemoglobin and hematocrit noted. Electrolytes were noted. DIAGNOSTIC DATA: CT of the chest as indicated above. IMPRESSION: 1. Acute respiratory distress secondary to pneumonia. 2. Acute bronchospasm, wheezing secondary to pneumonia and acute nonspecific bronchitis. 3. Hypertension. 4. Status post AAA repair in 04/2016. 5. Fever. PLAN: 1. Continue current antibiotics. 2. Nebulized treatments. 3. Follow clinical course and make further recommendations. I do appreciate the privilege in sharing in the patient's care. LAEX MCKEE MD DR: Yang JOB#: [id number] / [id number]
[2016-10-22 07:00] VITALS: BP 141/80
[2016-10-22] MEDS: ALBUTEROL SULFATE 2.5 MG/3 ML NEBU. NEB SCH ×4 (07:15→20:19)
[2016-10-22] MEDS: AZITHROMYCIN 250 MG TABLET. PO SCH (08:08)
[2016-10-22] MEDS: guaiFENesin/CODEINE 100mg/10mg 5 ML LIQUID PO PRN ×3 (08:08→23:36)
[2016-10-22] MEDS: ASPIRIN CHEWABLE 81 MG TABLET. PO SCH (08:08)
[2016-10-22] MEDS: amLODIPine BESYLATE 2.5 MG TABLET PO SCH (08:09)
--- NOTE | 2016-10-22 08:17 | PDOC ---
PULMONARY PROGRESS NOTES Subjective no soa at rest Vitals Vital Signs Date Time Temp Pulse Resp B/P (MAP) Pulse Ox O2 Delivery O2 Flow Rate FiO2 10/22/16 08:09 93 141/80 10/22/16 07:16 93 Room Air 10/22/16 07:00 98.1 20 3.0 98.1 General: Alert, No acute distress Lungs: Other (post rhonchi) Cardiovascular: S1 Abdomen: Soft Neuro Exam: Alert Extremities: No Edema Skin: Warm Labs Laboratory Tests Test 10/20/16 12:32 10/20/16 20:50 10/21/16 02:45 10/22/16 03:20 White Blood Count 13.6 x10^3/uL (4.0-11.0) 10.5 x10^3/uL (4.0-11.0) 13.3 x10^3/uL (4.0-11.0) Red Blood Count 4.73 x10^6/uL (4.30-5.70) 4.29 x10^6/uL (4.30-5.70) 4.32 x10^6/uL (4.30-5.70) Hemoglobin 14.4 g/dL (13.0-17.5) 13.0 g/dL (13.0-17.5) 13.0 g/dL (13.0-17.5) Hematocrit 42.0 % (39.0-53.0) 38.9 % (39.0-53.0) 39.3 % (39.0-53.0) Mean Corpuscular Volume 89 fL (79-100) 91 fL (79-100) 91 fL (79-100) Mean Corpuscular Hemoglobin 30 pg (25-35) 30 pg (25-35) 30 pg (25-35) Mean Corpuscular Hemoglobin Concent 34 g/dL (31-37) 33 g/dL (31-37) 33 g/dL (31-37) Red Cell Distribution Width 15.5 % (11.5-14.5) 15.7 % (11.5-14.5) 15.7 % (11.5-14.5) Platelet Count 206 x10^3/uL (140-400) 175 x10^3/uL (140-400) 185 x10^3/uL (140-400) Neutrophils (%) (Auto) 74 % (31-73) 72 % (31-73) 70 % (31-73) Lymphocytes (%) (Auto) 14 % (24-48) 15 % (24-48) 18 % (24-48) Monocytes (%) (Auto) 12 % (0-9) 13 % (0-9) 12 % (0-9) Eosinophils (%) (Auto) 0 % (0-3) 0 % (0-3) 0 % (0-3) Basophils (%) (Auto) 1 % (0-3) 0 % (0-3) 0 % (0-3) Neutrophils # (Auto) 10.1 x10^3uL (1.8-7.7) 7.6 x10^3uL (1.8-7.7) 9.3 x10^3uL (1.8-7.7) Lymphocytes # (Auto) 1.9 x10^3/uL (1.0-4.8) 1.6 x10^3/uL (1.0-4.8) 2.4 x10^3/uL (1.0-4.8) Monocytes # (Auto) 1.6 x10^3/uL (0.0-1.1) 1.4 x10^3/uL (0.0-1.1) 1.5 x10^3/uL (0.0-1.1) Eosinophils # (Auto) 0.0 x10^3/uL (0.0-0.7) 0.0 x10^3/uL (0.0-0.7) 0.0 x10^3/uL (0.0-0.7) Basophils # (Auto) 0.1 x10^3/uL (0.0-0.2) 0.0 x10^3/uL (0.0-0.2) 0.0 x10^3/uL (0.0-0.2) Prothrombin Time 13.4 SEC (11.7-14.0) Prothromb Time International Ratio 1.1 (0.8-1.1) D-Dimer (Qi) 2.44 ug/mlFEU (0.00-0.50) Sodium Level 141 mmol/L (136-145) 142 mmol/L (136-145) 141 mmol/L (136-145) Potassium Level 3.9 mmol/L (3.5-5.1) 3.7 mmol/L (3.5-5.1) 3.5 mmol/L (3.5-5.1) Chloride Level 105 mmol/L (98-107) 106 mmol/L (98-107) 105 mmol/L (98-107) Carbon Dioxide Level 28 mmol/L (21-32) 27 mmol/L (21-32) 29 mmol/L (21-32) Anion Gap 8 (6-14) 9 (6-14) 7 (6-14) Blood Urea Nitrogen 17 mg/dL (8-26) 14 mg/dL (8-26) 13 mg/dL (8-26) Creatinine 0.9 mg/dL (0.7-1.3) 0.8 mg/dL (0.7-1.3) 0.9 mg/dL (0.7-1.3) Estimated GFR (Cockcroft-Gault) 82.9 95.0 82.9 Glucose Level 108 mg/dL (70-99) 132 mg/dL (70-99) 122 mg/dL (70-99) Calcium Level 9.5 mg/dL (8.5-10.1) 8.4 mg/dL (8.5-10.1) 8.9 mg/dL (8.5-10.1) Magnesium Level 2.1 mg/dL (1.8-2.4) Total Bilirubin 0.8 mg/dL (0.2-1.0) 1.0 mg/dL (0.2-1.0) Direct Bilirubin 0.3 mg/dL (0.0-0.2) Aspartate Amino Transf (AST/SGOT) 35 U/L (15-37) 32 U/L (15-37) Alanine Aminotransferase (ALT/SGPT) 35 U/L (16-63) 40 U/L (16-63) Alkaline Phosphatase 187 U/L (46-116) 205 U/L (46-116) Creatine Kinase 235 U/L (39-308) Creatine Kinase MB (Mass) 1.4 ng/mL (0.0-3.6) Creatine Kinase MB Relative Index 0.6 % (0-4) Troponin I Quantitative < 0.017 ng/mL (0.000-0.055) < 0.017 ng/mL (0.000-0.055) < 0.017 ng/mL (0.000-0.055) UA-Jaj-R-Type Natriuretic Peptide 2015 pg/mL (0-124) Total Protein 7.9 g/dL (6.4-8.2) 6.7 g/dL (6.4-8.2) Albumin 3.4 g/dL (3.4-5.0) 2.7 g/dL (3.4-5.0) Lipase 122 U/L (73-393) Thyroid Stimulating Hormone (TSH) 2.006 uIU/mL (0.358-3.74) BUN/Creatinine Ratio 14 (6-20) Albumin/Globulin Ratio 0.7 (1.0-1.7) Laboratory Tests Test 10/22/16 03:20 White Blood Count 13.3 x10^3/uL (4.0-11.0) Red Blood Count 4.32 x10^6/uL (4.30-5.70) Hemoglobin 13.0 g/dL (13.0-17.5) Hematocrit 39.3 % (39.0-53.0) Mean Corpuscular Volume 91 fL (79-100) Mean Corpuscular Hemoglobin 30 pg (25-35) Mean Corpuscular Hemoglobin Concent 33 g/dL (31-37) Red Cell Distribution Width 15.7 % (11.5-14.5) Platelet Count 185 x10^3/uL (140-400) Neutrophils (%) (Auto) 70 % (31-73) Lymphocytes (%) (Auto) 18 % (24-48) Monocytes (%) (Auto) 12 % (0-9) Eosinophils (%) (Auto) 0 % (0-3) Basophils (%) (Auto) 0 % (0-3) Neutrophils # (Auto) 9.3 x10^3uL (1.8-7.7) Lymphocytes # (Auto) 2.4 x10^3/uL (1.0-4.8) Monocytes # (Auto) 1.5 x10^3/uL (0.0-1.1) Eosinophils # (Auto) 0.0 x10^3/uL (0.0-0.7) Basophils # (Auto) 0.0 x10^3/uL (0.0-0.2) Sodium Level 141 mmol/L (136-145) Potassium Level 3.5 mmol/L (3.5-5.1) Chloride Level 105 mmol/L (98-107) Carbon Dioxide Level 29 mmol/L (21-32) Anion Gap 7 (6-14) Blood Urea Nitrogen 13 mg/dL (8-26) Creatinine 0.9 mg/dL (0.7-1.3) Estimated GFR (Cockcroft-Gault) 82.9 BUN/Creatinine Ratio 14 (6-20) Glucose Level 122 mg/dL (70-99) Calcium Level 8.9 mg/dL (8.5-10.1) Total Bilirubin 1.0 mg/dL (0.2-1.0) Aspartate Amino Transf (AST/SGOT) 32 U/L (15-37) Alanine Aminotransferase (ALT/SGPT) 40 U/L (16-63) Alkaline Phosphatase 205 U/L (46-116) Total Protein 6.7 g/dL (6.4-8.2) Albumin 2.7 g/dL (3.4-5.0) Albumin/Globulin Ratio 0.7 (1.0-1.7) Medications Active Scripts Medications Dose Route/Sig Max Daily Dose Days Date Category Dose Instructions Mucinex (Guaifenesin) 600 Mg Tablet.er 1 Tab PO BID 10/20/16 Reported Clarithromycin 500 Mg Tablet 2 Tab PO DAILY 10 10/20/16 Reported Prednisone 20 Mg Tablet Tab PO DAILY 10/20/16 Reported 3 tabs daily for 3 days, then 2 tabs daily for 3 days, then 1 daily for 3 days, 1/2 tab daily for 4 days, then stop [Promethazine Hcl/Codeine] 5 ML Syrup 5 Ml PO PRN Q6HRS PRN 04/23/16 Rx Amlodipine Besylate 2.5 Mg Tablet 2.5 Mg PO DAILY 04/23/16 Rx Children's Aspirin (Aspirin) 81 Mg Tab.chew 81 Mg PO [id number] 04/23/16 Rx Impression . 1. Acute respiratory distress secondary to pneumonia. 2. Acute bronchospasm, wheezing secondary to pneumonia and acute nonspecific bronchitis. 3. Hypertension. 4. Status post AAA repair in 04/2016. 5. Fever. Plan . 1. Continue current antibiotics. 2. Nebulized treatments. 3. Follow clinical course and make further recommendations. 4. PT CHANTEL PRECIADO MD Oct 22, 2016 08:17
--- NOTE | 2016-10-22 10:39 | PDOC ---
PROGRESS NOTES Chief Complaint Chief Complaint PNA right lower lobe pneumonia per CTA. cont antibiotics azithromycin and ceftriaxone. htn gen weaekness and debility chronic diatolic CHF History of Present Illness History of Present Illness working well with PT still dyspneic, a lot of coughing, sputum persists Pulm following pt feels slowly improved Vitals Vitals Vital Signs Date Time Temp Pulse Resp B/P (MAP) Pulse Ox O2 Delivery O2 Flow Rate FiO2 10/22/16 08:09 93 141/80 10/22/16 08:00 Nasal Cannula 3.0 10/22/16 07:16 93 10/22/16 07:00 98.1 20 98.1 Physical Exam General: Alert, Oriented X3, Cooperative, No acute distress Heart: Regular rate, No murmurs Lungs: Crackles, Other (post rhonchi) Abdomen: Normal bowel sounds Extremities: No clubbing, No cyanosis, No edema Skin: No rashes, No breakdown Labs LABS Laboratory Tests Test 10/22/16 03:20 White Blood Count 13.3 x10^3/uL (4.0-11.0) Red Blood Count 4.32 x10^6/uL (4.30-5.70) Hemoglobin 13.0 g/dL (13.0-17.5) Hematocrit 39.3 % (39.0-53.0) Mean Corpuscular Volume 91 fL (79-100) Mean Corpuscular Hemoglobin 30 pg (25-35) Mean Corpuscular Hemoglobin Concent 33 g/dL (31-37) Red Cell Distribution Width 15.7 % (11.5-14.5) Platelet Count 185 x10^3/uL (140-400) Neutrophils (%) (Auto) 70 % (31-73) Lymphocytes (%) (Auto) 18 % (24-48) Monocytes (%) (Auto) 12 % (0-9) Eosinophils (%) (Auto) 0 % (0-3) Basophils (%) (Auto) 0 % (0-3) Neutrophils # (Auto) 9.3 x10^3uL (1.8-7.7) Lymphocytes # (Auto) 2.4 x10^3/uL (1.0-4.8) Monocytes # (Auto) 1.5 x10^3/uL (0.0-1.1) Eosinophils # (Auto) 0.0 x10^3/uL (0.0-0.7) Basophils # (Auto) 0.0 x10^3/uL (0.0-0.2) Sodium Level 141 mmol/L (136-145) Potassium Level 3.5 mmol/L (3.5-5.1) Chloride Level 105 mmol/L (98-107) Carbon Dioxide Level 29 mmol/L (21-32) Anion Gap 7 (6-14) Blood Urea Nitrogen 13 mg/dL (8-26) Creatinine 0.9 mg/dL (0.7-1.3) Estimated GFR (Cockcroft-Gault) 82.9 BUN/Creatinine Ratio 14 (6-20) Glucose Level 122 mg/dL (70-99) Calcium Level 8.9 mg/dL (8.5-10.1) Total Bilirubin 1.0 mg/dL (0.2-1.0) Aspartate Amino Transf (AST/SGOT) 32 U/L (15-37) Alanine Aminotransferase (ALT/SGPT) 40 U/L (16-63) Alkaline Phosphatase 205 U/L (46-116) Total Protein 6.7 g/dL (6.4-8.2) Albumin 2.7 g/dL (3.4-5.0) Albumin/Globulin Ratio 0.7 (1.0-1.7) Assessment and Plan Assessmemt and Plan Problems Medical Problems: (1) Dyspnea Status: Acute Problems: Comment Review of Relevant I have reviewed the following items abdon (where applicable) has been applied. Labs Laboratory Tests Test 10/20/16 12:32 10/20/16 20:50 10/21/16 02:45 10/22/16 03:20 White Blood Count 13.6 x10^3/uL (4.0-11.0) 10.5 x10^3/uL (4.0-11.0) 13.3 x10^3/uL (4.0-11.0) Red Blood Count 4.73 x10^6/uL (4.30-5.70) 4.29 x10^6/uL (4.30-5.70) 4.32 x10^6/uL (4.30-5.70) Hemoglobin 14.4 g/dL (13.0-17.5) 13.0 g/dL (13.0-17.5) 13.0 g/dL (13.0-17.5) Hematocrit 42.0 % (39.0-53.0) 38.9 % (39.0-53.0) 39.3 % (39.0-53.0) Mean Corpuscular Volume 89 fL (79-100) 91 fL (79-100) 91 fL (79-100) Mean Corpuscular Hemoglobin 30 pg (25-35) 30 pg (25-35) 30 pg (25-35) Mean Corpuscular Hemoglobin Concent 34 g/dL (31-37) 33 g/dL (31-37) 33 g/dL (31-37) Red Cell Distribution Width 15.5 % (11.5-14.5) 15.7 % (11.5-14.5) 15.7 % (11.5-14.5) Platelet Count 206 x10^3/uL (140-400) 175 x10^3/uL (140-400) 185 x10^3/uL (140-400) Neutrophils (%) (Auto) 74 % (31-73) 72 % (31-73) 70 % (31-73) Lymphocytes (%) (Auto) 14 % (24-48) 15 % (24-48) 18 % (24-48) Monocytes (%) (Auto) 12 % (0-9) 13 % (0-9) 12 % (0-9) Eosinophils (%) (Auto) 0 % (0-3) 0 % (0-3) 0 % (0-3) Basophils (%) (Auto) 1 % (0-3) 0 % (0-3) 0 % (0-3) Neutrophils # (Auto) 10.1 x10^3uL (1.8-7.7) 7.6 x10^3uL (1.8-7.7) 9.3 x10^3uL (1.8-7.7) Lymphocytes # (Auto) 1.9 x10^3/uL (1.0-4.8) 1.6 x10^3/uL (1.0-4.8) 2.4 x10^3/uL (1.0-4.8) Monocytes # (Auto) 1.6 x10^3/uL (0.0-1.1) 1.4 x10^3/uL (0.0-1.1) 1.5 x10^3/uL (0.0-1.1) Eosinophils # (Auto) 0.0 x10^3/uL (0.0-0.7) 0.0 x10^3/uL (0.0-0.7) 0.0 x10^3/uL (0.0-0.7) Basophils # (Auto) 0.1 x10^3/uL (0.0-0.2) 0.0 x10^3/uL (0.0-0.2) 0.0 x10^3/uL (0.0-0.2) Prothrombin Time 13.4 SEC (11.7-14.0) Prothromb Time International Ratio 1.1 (0.8-1.1) D-Dimer (Qi) 2.44 ug/mlFEU (0.00-0.50) Sodium Level 141 mmol/L (136-145) 142 mmol/L (136-145) 141 mmol/L (136-145) Potassium Level 3.9 mmol/L (3.5-5.1) 3.7 mmol/L (3.5-5.1) 3.5 mmol/L (3.5-5.1) Chloride Level 105 mmol/L (98-107) 106 mmol/L (98-107) 105 mmol/L (98-107) Carbon Dioxide Level 28 mmol/L (21-32) 27 mmol/L (21-32) 29 mmol/L (21-32) Anion Gap 8 (6-14) 9 (6-14) 7 (6-14) Blood Urea Nitrogen 17 mg/dL (8-26) 14 mg/dL (8-26) 13 mg/dL (8-26) Creatinine 0.9 mg/dL (0.7-1.3) 0.8 mg/dL (0.7-1.3) 0.9 mg/dL (0.7-1.3) Estimated GFR (Cockcroft-Gault) 82.9 95.0 82.9 Glucose Level 108 mg/dL (70-99) 132 mg/dL (70-99) 122 mg/dL (70-99) Calcium Level 9.5 mg/dL (8.5-10.1) 8.4 mg/dL (8.5-10.1) 8.9 mg/dL (8.5-10.1) Magnesium Level 2.1 mg/dL (1.8-2.4) Total Bilirubin 0.8 mg/dL (0.2-1.0) 1.0 mg/dL (0.2-1.0) Direct Bilirubin 0.3 mg/dL (0.0-0.2) Aspartate Amino Transf (AST/SGOT) 35 U/L (15-37) 32 U/L (15-37) Alanine Aminotransferase (ALT/SGPT) 35 U/L (16-63) 40 U/L (16-63) Alkaline Phosphatase 187 U/L (46-116) 205 U/L (46-116) Creatine Kinase 235 U/L (39-308) Creatine Kinase MB (Mass) 1.4 ng/mL (0.0-3.6) Creatine Kinase MB Relative Index 0.6 % (0-4) Troponin I Quantitative < 0.017 ng/mL (0.000-0.055) < 0.017 ng/mL (0.000-0.055) < 0.017 ng/mL (0.000-0.055) LU-Ywn-L-Type Natriuretic Peptide 2015 pg/mL (0-124) Total Protein 7.9 g/dL (6.4-8.2) 6.7 g/dL (6.4-8.2) Albumin 3.4 g/dL (3.4-5.0) 2.7 g/dL (3.4-5.0) Lipase 122 U/L (73-393) Thyroid Stimulating Hormone (TSH) 2.006 uIU/mL (0.358-3.74) BUN/Creatinine Ratio 14 (6-20) Albumin/Globulin Ratio 0.7 (1.0-1.7) Laboratory Tests Test 10/22/16 03:20 White Blood Count 13.3 x10^3/uL (4.0-11.0) Red Blood Count 4.32 x10^6/uL (4.30-5.70) Hemoglobin 13.0 g/dL (13.0-17.5) Hematocrit 39.3 % (39.0-53.0) Mean Corpuscular Volume 91 fL (79-100) Mean Corpuscular Hemoglobin 30 pg (25-35) Mean Corpuscular Hemoglobin Concent 33 g/dL (31-37) Red Cell Distribution Width 15.7 % (11.5-14.5) Platelet Count 185 x10^3/uL (140-400) Neutrophils (%) (Auto) 70 % (31-73) Lymphocytes (%) (Auto) 18 % (24-48) Monocytes (%) (Auto) 12 % (0-9) Eosinophils (%) (Auto) 0 % (0-3) Basophils (%) (Auto) 0 % (0-3) Neutrophils # (Auto) 9.3 x10^3uL (1.8-7.7) Lymphocytes # (Auto) 2.4 x10^3/uL (1.0-4.8) Monocytes # (Auto) 1.5 x10^3/uL (0.0-1.1) Eosinophils # (Auto) 0.0 x10^3/uL (0.0-0.7) Basophils # (Auto) 0.0 x10^3/uL (0.0-0.2) Sodium Level 141 mmol/L (136-145) Potassium Level 3.5 mmol/L (3.5-5.1) Chloride Level 105 mmol/L (98-107) Carbon Dioxide Level 29 mmol/L (21-32) Anion Gap 7 (6-14) Blood Urea Nitrogen 13 mg/dL (8-26) Creatinine 0.9 mg/dL (0.7-1.3) Estimated GFR (Cockcroft-Gault) 82.9 BUN/Creatinine Ratio 14 (6-20) Glucose Level 122 mg/dL (70-99) Calcium Level 8.9 mg/dL (8.5-10.1) Total Bilirubin 1.0 mg/dL (0.2-1.0) Aspartate Amino Transf (AST/SGOT) 32 U/L (15-37) Alanine Aminotransferase (ALT/SGPT) 40 U/L (16-63) Alkaline Phosphatase 205 U/L (46-116) Total Protein 6.7 g/dL (6.4-8.2) Albumin 2.7 g/dL (3.4-5.0) Albumin/Globulin Ratio 0.7 (1.0-1.7) Medications Current Medications Iohexol (Omnipaque 300 Mg/ml) 75 ml 1X ONCE IV Last administered on 10/20/16 15:28; Start 10/20/16 at 14:30; Stop 10/20/16 at 14:31; Status DC Info (Do NOT chart on this entry -- for MONITORING) 1 each PRN DAILY PRN MC SEE COMMENTS; Start 10/20/16 at 14:45; Stop 10/22/16 at 14:44 Ondansetron HCl (Zofran) 4 mg PRN Q8HRS PRN IV NAUSEA/VOMITING; Start 10/20/16 at 14:45; Stop 10/21/16 at 14:44; Status DC Ceftriaxone Sodium 1 gm/ Sodium Chloride 50 ml @ 100 mls/hr Q24H IV Last administered on 10/21/16 17:19; Start 10/20/16 at 18:00 Azithromycin 250 ml @ 250 mls/hr 1X ONCE IV Last administered on 10/20/16 19 :12; Start 10/20/16 at 18:00; Stop 10/20/16 at 18:59; Status DC Amlodipine Besylate (Norvasc) 2.5 mg DAILY PO Last administered on 10/22/16 08 :09; Start 10/21/16 at 09:00 Aspirin (Children'S Aspirin) 81 mg DAILYWBKFT PO Last administered on 08:08; Start 10/21/16 at 08:00 Guaifenesin (Mucinex) 600 mg BID PO Last administered on 10/22/16 08:08; Start 10/20/16 at 21:00 Acetaminophen/ Codeine Phosphate (Tylenol #3) 1 tab PRN Q4HRS PRN PO PAIN Last administered on 10/21/16 02:49; Start 10/20/16 at 18:30 Albuterol Sulfate (Ventolin Neb Soln) 2.5 mg RTQID NEB Last administered on 07:15; Start 10/20/16 at 20:00 Lisinopril (Prinivil) 5 mg 1X ONCE PO Last administered on 10/20/16 18:31; Start 10/20/16 at 18:30; Stop 10/20/16 at 18:31; Status DC Azithromycin (Zithromax) 250 mg DAILY PO Last administered on 10/22/16 08:08; Start 10/21/16 at 13:00 Guaifenesin/ Codeine Phosphate (Robitussin Ac) 5 ml PRN Q6HRS PRN PO COUGH Last administered on 10/22/16 08:08; Start 10/21/16 at 17:15 Albuterol Sulfate (Ventolin Neb Soln) 2.5 mg PRN Q4HRS PRN NEB SHORTNESS OF BREATH; Start 10/21/16 at 17:30 Active Scripts Active [Promethazine Hcl/Codeine] 5 ML Syrup 5 Ml PO PRN Q6HRS PRN Amlodipine Besylate 2.5 Mg Tablet 2.5 Mg PO DAILY Children's Aspirin (Aspirin) 81 Mg Tab.chew 81 Mg PO DAILYWBKFT Reported Mucinex (Guaifenesin) 600 Mg Tablet.er 1 Tab PO BID Clarithromycin 500 Mg Tablet 2 Tab PO DAILY 10 Days Prednisone 20 Mg Tablet Tab PO DAILY 3 tabs daily for 3 days, then 2 tabs daily for 3 days, then 1 daily for 3 days, 1/2 tab daily for 4 days, then stop Vitals/I & O Vital Sign - Last 24 Hours 10/21/16 10/21/16 10/21/16 10/21/16 11:00 11:51 15:00 15:44 Temp 98.4 98.5 98.4 98.5 Pulse 78 99 Resp 20 20 B/P (MAP) 110/66 (81) 141/94 (110) Pulse Ox 94 93 O2 Delivery Nasal Cannula Nasal Cannula Nasal Cannula Nasal Cannula O2 Flow Rate 3.0 2.0 3.0 2.0 10/21/16 10/21/16 10/21/16 10/21/16 19:51 20:00 21:26 23:30 Temp 99.5 99.0 99.5 99.0 Pulse 95 87 Resp 16 24 B/P (MAP) 123/58 (79) 134/76 (95) Pulse Ox 91 92 94 O2 Delivery Room Air Room Air Room Air Room Air O2 Flow Rate 2.0 10/22/16 10/22/16 10/22/16 10/22/16 03:03 07:00 07:16 08:00 Temp 98.7 98.1 98.7 98.1 Pulse 92 93 Resp 16 20 B/P (MAP) 136/76 (96) 141/80 (100) Pulse Ox 94 95 93 O2 Delivery Nasal Cannula Nasal Cannula Room Air Nasal Cannula O2 Flow Rate 3.0 3.0 10/22/16 08:09 Pulse 93 B/P (MAP) 141/80 Intake and Output 10/21/16 10/21/16 10/22/16 15:00 23:00 07:00 Intake Total 450 ml 450 ml Output Total 300 ml 400 ml Balance 150 ml 50 ml ALEXANDER JOHNSON MD Oct 22, 2016 10:39
[2016-10-22 11:00] VITALS: BP 113/68
[2016-10-22 15:00] VITALS: BP 125/65
[2016-10-22 19:48] VITALS: BP 119/76
[2016-10-22 23:26] VITALS: BP 98/71
[2016-10-23 07:28] VITALS: BP 115/73
[2016-10-23] MEDS: guaiFENesin/CODEINE 100mg/10mg 5 ML LIQUID PO PRN (07:52)
[2016-10-23] MEDS: ASPIRIN CHEWABLE 81 MG TABLET. PO SCH (07:52)
[2016-10-23] MEDS: AZITHROMYCIN 250 MG TABLET. PO SCH (07:52)
[2016-10-23] MEDS: amLODIPine BESYLATE 2.5 MG TABLET PO SCH (07:54)
[2016-10-23] MEDS: ALBUTEROL SULFATE 2.5 MG/3 ML NEBU. NEB SCH ×2 (07:54→10:51)
[2016-10-23] MEDS ORDERED: AZIT250T6 PO (08:55)
[2016-10-23] MEDS ORDERED: VENTOLIN HFA18 GM INH (08:55)
[2016-10-23 10:25] VITALS: BP 114/69
--- NOTE | 2016-10-23 12:09 | PDOC ---
PULMONARY PROGRESS NOTES Subjective no soa at rest Vitals Vital Signs Date Time Temp Pulse Resp B/P (MAP) Pulse Ox O2 Delivery O2 Flow Rate FiO2 10/23/16 10:52 Room Air 10/23/16 10:25 99.1 95 22 114/69 (84) 93 99.1 10/23/16 07:56 3.0 General: Alert, No acute distress Lungs: Other (post rhonchi) Cardiovascular: S1 Abdomen: Soft Neuro Exam: Alert Extremities: No Edema Skin: Warm Labs Laboratory Tests Test 10/22/16 03:20 White Blood Count 13.3 x10^3/uL (4.0-11.0) Red Blood Count 4.32 x10^6/uL (4.30-5.70) Hemoglobin 13.0 g/dL (13.0-17.5) Hematocrit 39.3 % (39.0-53.0) Mean Corpuscular Volume 91 fL (79-100) Mean Corpuscular Hemoglobin 30 pg (25-35) Mean Corpuscular Hemoglobin Concent 33 g/dL (31-37) Red Cell Distribution Width 15.7 % (11.5-14.5) Platelet Count 185 x10^3/uL (140-400) Neutrophils (%) (Auto) 70 % (31-73) Lymphocytes (%) (Auto) 18 % (24-48) Monocytes (%) (Auto) 12 % (0-9) Eosinophils (%) (Auto) 0 % (0-3) Basophils (%) (Auto) 0 % (0-3) Neutrophils # (Auto) 9.3 x10^3uL (1.8-7.7) Lymphocytes # (Auto) 2.4 x10^3/uL (1.0-4.8) Monocytes # (Auto) 1.5 x10^3/uL (0.0-1.1) Eosinophils # (Auto) 0.0 x10^3/uL (0.0-0.7) Basophils # (Auto) 0.0 x10^3/uL (0.0-0.2) Sodium Level 141 mmol/L (136-145) Potassium Level 3.5 mmol/L (3.5-5.1) Chloride Level 105 mmol/L (98-107) Carbon Dioxide Level 29 mmol/L (21-32) Anion Gap 7 (6-14) Blood Urea Nitrogen 13 mg/dL (8-26) Creatinine 0.9 mg/dL (0.7-1.3) Estimated GFR (Cockcroft-Gault) 82.9 BUN/Creatinine Ratio 14 (6-20) Glucose Level 122 mg/dL (70-99) Calcium Level 8.9 mg/dL (8.5-10.1) Total Bilirubin 1.0 mg/dL (0.2-1.0) Aspartate Amino Transf (AST/SGOT) 32 U/L (15-37) Alanine Aminotransferase (ALT/SGPT) 40 U/L (16-63) Alkaline Phosphatase 205 U/L (46-116) Total Protein 6.7 g/dL (6.4-8.2) Albumin 2.7 g/dL (3.4-5.0) Albumin/Globulin Ratio 0.7 (1.0-1.7) Medications Active Scripts Medications Dose Route/Sig Max Daily Dose Days Date Category Dose Instructions Mucinex (Guaifenesin) 600 Mg Tablet.er 1 Tab PO BID 10/20/16 Reported Clarithromycin 500 Mg Tablet 2 Tab PO DAILY 10 10/20/16 Reported Prednisone 20 Mg Tablet Tab PO DAILY 10/20/16 Reported 3 tabs daily for 3 days, then 2 tabs daily for 3 days, then 1 daily for 3 days, 1/2 tab daily for 4 days, then stop [Promethazine Hcl/Codeine] 5 ML Syrup 5 Ml PO PRN Q6HRS PRN 04/23/16 Rx Amlodipine Besylate 2.5 Mg Tablet 2.5 Mg PO DAILY 04/23/16 Rx Children's Aspirin (Aspirin) 81 Mg Tab.chew 81 Mg PO DAILYWBKFT 04/23/16 Rx Impression . 1. Acute respiratory distress secondary to pneumonia. 2. Acute bronchospasm, wheezing secondary to pneumonia and acute nonspecific bronchitis. 3. Hypertension. 4. Status post AAA repair in 04/2016. 5. Fever. Plan . 1. Continue current antibiotics. 2. Nebulized treatments. 3. clinically better 4. PT ok with home CHANTEL PRECIADO MD Oct 23, 2016 12:09
--- NOTE | 2016-10-23 16:49 | PDOC3 ---
Discharge Summary Visit Information Date of Admission: Oct 20, 2016 Date of Discharge: Oct 23, 2016 Admitting Diagnosis: pneumonia Final Diagnosis PNA right lower lobe pneumonia per CTA. cont antibiotics azithromycin and ceftriaxone. htn gen weaekness and debility chronic diatolic CHF Problems Medical Problems: (1) Dyspnea Status: Acute Brief Hospital Course Allergies Allergies Coded Allergies Type Severity Reaction Last Updated Verified No Known Drug Allergies 07/23/14 No Vital Signs Vital Signs Date Time Temp Pulse Resp B/P (MAP) Pulse Ox O2 Delivery O2 Flow Rate FiO2 10/23/16 10:52 Room Air 10/23/16 10:25 99.1 95 22 114/69 (84) 93 99.1 10/23/16 07:56 3.0 Lab Results Laboratory Tests Test 10/22/16 03:20 White Blood Count 13.3 x10^3/uL (4.0-11.0) Red Blood Count 4.32 x10^6/uL (4.30-5.70) Hemoglobin 13.0 g/dL (13.0-17.5) Hematocrit 39.3 % (39.0-53.0) Mean Corpuscular Volume 91 fL (79-100) Mean Corpuscular Hemoglobin 30 pg (25-35) Mean Corpuscular Hemoglobin Concent 33 g/dL (31-37) Red Cell Distribution Width 15.7 % (11.5-14.5) Platelet Count 185 x10^3/uL (140-400) Neutrophils (%) (Auto) 70 % (31-73) Lymphocytes (%) (Auto) 18 % (24-48) Monocytes (%) (Auto) 12 % (0-9) Eosinophils (%) (Auto) 0 % (0-3) Basophils (%) (Auto) 0 % (0-3) Neutrophils # (Auto) 9.3 x10^3uL (1.8-7.7) Lymphocytes # (Auto) 2.4 x10^3/uL (1.0-4.8) Monocytes # (Auto) 1.5 x10^3/uL (0.0-1.1) Eosinophils # (Auto) 0.0 x10^3/uL (0.0-0.7) Basophils # (Auto) 0.0 x10^3/uL (0.0-0.2) Sodium Level 141 mmol/L (136-145) Potassium Level 3.5 mmol/L (3.5-5.1) Chloride Level 105 mmol/L (98-107) Carbon Dioxide Level 29 mmol/L (21-32) Anion Gap 7 (6-14) Blood Urea Nitrogen 13 mg/dL (8-26) Creatinine 0.9 mg/dL (0.7-1.3) Estimated GFR (Cockcroft-Gault) 82.9 BUN/Creatinine Ratio 14 (6-20) Glucose Level 122 mg/dL (70-99) Calcium Level 8.9 mg/dL (8.5-10.1) Total Bilirubin 1.0 mg/dL (0.2-1.0) Aspartate Amino Transf (AST/SGOT) 32 U/L (15-37) Alanine Aminotransferase (ALT/SGPT) 40 U/L (16-63) Alkaline Phosphatase 205 U/L (46-116) Total Protein 6.7 g/dL (6.4-8.2) Albumin 2.7 g/dL (3.4-5.0) Albumin/Globulin Ratio 0.7 (1.0-1.7) Brief Hospital Course Mr. Guzman is a 70 old male, admit with dyspnea cough, PNA, req. IV abx, working well with PT over 3 days , dyspneic, a lot of coughing, sputum persisted, pt improved, DC in good condition Discharge Information Condition at Discharge: Improved Follow Up: Weeks Disposition/Orders: D/C to Home Scheduled Amlodipine Besylate (Amlodipine Besylate), 2.5 MG PO DAILY Aspirin (Children's Aspirin), 81 MG PO DAILYWBKFT Azithromycin (Azithromycin Tablet), 250 MG PO DAILY Clarithromycin (Clarithromycin), 2 TAB PO DAILY, (Reported) Guaifenesin (Mucinex), 1 TAB PO BID, (Reported) Scheduled PRN Albuterol Sulfate (Ventolin Hfa Inhaler), 2 PUFF INH Q4HRS PRN for dyspnea [Promethazine Hcl/Codeine], 5 ML PO PRN Q6HRS PRN for COUGH Discontinued Medications Prednisone (Prednisone), TAB PO DAILY, (Reported) Patient Instructions Patient Instructions cont azithro 5 more days time > 30 min ALEXANDER JOHNSON MD Oct 23, 2016 16:49
== END 2016-10-23 12:25 | disposition home or self-care (01) | DRG 871 ==
LOC: ER 11:29 → 6 SOUTH 14:30 → OBSVTOIN 14:47
PROVIDERS: ADMIT Internal Medicine Hematology & Oncology; ATTEND Internal Medicine Hematology & Oncology
DX: A41.9 Sepsis, unspecified organism (principal); J15.6 Pneumonia due to other Gram-negative bacteria; I50.32 Chronic diastolic (congestive) heart failure; J20.9 Acute bronchitis, unspecified; I11.0 Hypertensive heart disease with heart failure; J98.01 Acute bronchospasm; R53.81 Other malaise; E66.9 Obesity, unspecified; K44.9 Diaphragmatic hernia without obstruction or gangrene; Z87.01 Personal history of pneumonia (recurrent); Z72.89 Other problems related to lifestyle; Z68.30 Body mass index [BMI] 30.0-30.9, adult
CPT/HCPCS: 36415; 71010; 71275; 80048; 80053; 80076; 82553; 83690; 83735; 83880; 84443; 84484; 85027; 85379; 85610; 93005; 94250; 94620; 94640; 94760; 96365; G0379; J0456; J0696; Q0144; Q9967; 99285-25

== ENCOUNTER → 2019-10-07 | Outpatient (CLI) | payer OTHER, MEDICARE ==
[~2019-10-07] MED LIST changes: +ALBU2.5V8 IH; -AMLO2.5T PO; +AMLO2.5T5 PO; -ASPI81TA44 PO; +ASPI81TA59 PO; +AZIT250T6 PO; +BENZ-8 PO; -BENZ100C15 PO; +CLAR-7 PO; +GUAI600T47 PO; +OXYC-411 PO; -OXYC1TAB9 PO; +PRED20TA PO; -PROAIR HFA8.5 GM IH; +VENTOLIN HFA18 GM INH
--- NOTE | 2019-10-07 14:22 | CARD ---
MR#: [id number] Date of Study: 10/07/2019 Ordering Physician: KHUSHI SOSA, Referring Physician: KHUSHI SOSA, Tech: Marlin Jacob APPROVED REPORT EXAM: Two-dimensional and M-mode echocardiogram with Doppler and color Doppler. Other Information Quality : AverageHR: 73bpm INDICATION Atrial Fibrillation 2D DIMENSIONS RVDd3.1 (2.9-3.5cm)Left Atrium(2D)4.3 (1.6-4.0cm) IVSd1.1 (0.7-1.1cm)Aortic Root(2D)3.6 (2.0-3.7cm) LVDd5.4 (3.9-5.9cm)LVOT Diameter2.3 (1.8-2.4cm) PWd1.2 (0.7-1.1cm)LVDs4.2 (2.5-4.0cm) FS (%) 21.5 %SV59.9 ml LVEF(%)43.2 (>50%) Aortic Valve AoV Peak Dariusz.153.2cm/sAoV VTI27.1cm AO Peak GR.9.4mmHgLVOT Peak Dariuzs.99.6cm/s LVOT VTI 19.87cmAO Mean GR.5mmHg RAMIRO (VMAX)1.06tx7GWX (VTI)2.94cm2 AI P 1/2 Mfef087ze Mitral Valve MV E Zdtfwdwm96.7cm/sMV DECEL BYYB767zw MV A Ffsbdows03.5cm/sMV E Mean Gr.2mmHg MV UVN87jlE/A Ratio1.8 MVA (PHT)3.21cm2 TDI E/Lateral E'6.4E/Medial E'9.2 Pulmonary Valve PV Peak Nwtsfemp769.6cm/sPV Peak Grad.7mmHg Tricuspid Valve TR P. Azsfjyyc862bd/sRAP AYSLOHCE6scKx TR Peak Gr.57raUeFVHK40frNc LEFT VENTRICLE The left ventricle is normal size. There is borderline to mild concentric left ventricular hypertroph y. The left ventricular systolic function is normal and the ejection fraction is within normal range. EF 55% Septal motion consistent with conduction abnormality. Otherwise, grossly normal wall motion. Tissue Doppler imaging reveals moderate left ventricular diastolic dysfunction. RIGHT VENTRICLE The right ventricle is mildly to moderately dilated. There is normal right ventricular wall thickness . The right ventricular systolic function is normal. ATRIA The left atrium is moderately dilated. The right atrium is moderately dilated. The interatrial septum is intact with no evidence for an atrial septal defect or patent foramen ovale as noted on 2-D or Do ppler imaging. AORTIC VALVE The aortic valve is thickened but opens well. Doppler and Color Flow revealed mild aortic regurgitati on. Calculated aortic valve area is 1.2 cm2 with maximum pressure gradient of 10 mmHg and mean pressu re gradient of 6 mmHg. There is no significant aortic valvular stenosis. MITRAL VALVE The mitral valve is normal in structure and function. There is no evidence of mitral valve prolapse. There is no mitral valve stenosis. Doppler and Color-flow revealed trace mitral regurgitation. TRICUSPID VALVE The tricuspid valve is normal in structure and function. Doppler and Color Flow revealed mild to mode rate tricuspid regurgitation with an estimated PAP of 46 mmHg. There is no tricuspid valve stenosis. PULMONIC VALVE The pulmonic valve is not well visualized. Doppler and Color Flow revealed trace pulmonic valvular re gurgitation. There is no pulmonic valvular stenosis. GREAT VESSELS The aortic root is normal in size. The IVC is normal in size and collapses >50% with inspiration. PERICARDIAL EFFUSION There is no evidence of significant pericardial effusion. Critical Notification Critical Value: No <Conclusion> The left ventricular systolic function is normal and the ejection fraction is within normal range. EF 55% Septal motion consistent with conduction abnormality. Otherwise, grossly normal wall motion. Tissue Doppler imaging reveals moderate left ventricular diastolic dysfunction. The right ventricle is mildly to moderately dilated. Doppler and Color Flow revealed mild to moderate tricuspid regurgitation with an estimated PAP of 46 mmHg. Signed by : Khushi Sosa, Electronically Approved : 10/07/2019 14:22:00
== END | disposition home or self-care (01) ==
LOC: ECHO 12:45
PROVIDERS: ATTEND Internal Medicine Cardiovascular Disease
DX: I08.2 Rheumatic disorders of both aortic and tricuspid valves (principal); I48.91 Unspecified atrial fibrillation
CPT/HCPCS: 93306

== ENCOUNTER 2021-03-12 11:20 | Emergency (ER) | payer OTHER, MEDICARE ==
[~2021-03-12] VITALS: Ht 185.4 cm; Wt 112.0 kg
[~2021-03-12 11:20] MED LIST changes: -OXYC-411 PO; +OXYC1TAB20 PO
[2021-03-12 12:22] LABS: BILIRUBIN,URINE NEGATIVE (NEG); CLARITY,URINE CLEAR; COLOR,URINE YELLOW; NITRITE,URINE NEGATIVE (NEG); PROTEIN,URINE NEGATIVE (NEG-TRACE); UROBILINOGEN,URINE 0.2 mg/dL (0.2 mg/dL)
[2021-03-12 12:29] LABS: RBC,URINE OCC /HPF (0-2); WBC,URINE OCC /HPF (0-4)
[2021-03-12 12:30] LABS: BACTERIA,URINE 0 /HPF (0-FEW)
[2021-03-12 12:54] LABS: BASO # 0.1 x10^3/uL (0.0-0.2); BASO % 1 % (0-3); EOS # 0.1 x10^3/uL (0.0-0.7); EOS % 2 % (0-3); HEMATOCRIT 41.8 % (39.0-53.0); HEMOGLOBIN 14.2 g/dL (13.0-17.5); LYMPH % 31 % (24-48); MEAN CORPUSCULAR HEMOGLOBIN 32 pg (25-35); MEAN CORPUSCULAR HGB CONC 34 g/dL (31-37); MEAN CORPUSCULAR VOLUME 95 fL (79-100); MONO # 0.8 x10^3/uL (0.0-1.1); MONO % 11 % (0-9); NEUT # 3.7 x10^3/uL (1.8-7.7); NEUT % 55 % (31-73); PLATELET COUNT 155 x10^3/uL (140-400); RED BLOOD COUNT 4.41 x10^6/uL (4.30-5.70); RED CELL DISTRIBUTION WIDTH 13.9 % (11.5-14.5); WHITE BLOOD COUNT 6.6 x10^3/uL (4.0-11.0)
[2021-03-12 13:09] LABS: CALCIUM 8.7 mg/dL (8.5-10.1); CREATININE 0.7 mg/dL (0.7-1.3); GFR 109.1; POTASSIUM 4.1 mmol/L (3.5-5.1)
[2021-03-12 13:15] LABS: ALBUMIN 3.2 g/dL (3.4-5.0); ALBUMIN/GLOBULIN RATIO 0.9 (1.0-1.7); TOTAL BILIRUBIN 0.4 mg/dL (0.2-1.0); TOTAL PROTEIN 6.8 g/dL (6.4-8.2)
[2021-03-12 13:22] LABS: CREATINE KINASE 38 U/L (39-308)
--- NOTE | 2021-03-12 13:24 | RAD ---
CLINICAL HISTORY: Reason: Testicular swelling / Spl. Instructions: / History: COMPARISON: None available. TECHNIQUE: Ultrasound images of the scrotum was performed with lyle-scale, color and spectral Dopple r imaging. FINDINGS: The right testis measures 4.3 x 2.2 x 2.2 cm. The left testis measures 4.2 x 2.9 x 3.5 cm. There is no intratesticular abnormality. Testicular vascularity is symmetric and within normal limit s. The epididymis is normal in appearance bilaterally. There are small left greater than right hydroceles. IMPRESSION: Small bilateral hydroceles. Otherwise normal scrotal ultrasound. Electronically signed by: Betty Tom MD (03/12/2021 1:22 PM) [id number]
--- NOTE | 2021-03-12 13:29 | RAD ---
XR CHEST 1V History: Abdominal discomfort, AAA history. Comparison: None. Technique: Portable AP radiograph of the chest. Findings: The lungs are adequately inflated. No focal airspace consolidation, pleural effusion or pneumothorax. Cardiomegaly with calcified uncoiled aortic arch. Soft tissues are unremarkable. Degenerative change s of the shoulders. Impression: 1. Cardiomegaly. Electronically signed by: Clinton Dickinson MD (03/12/2021 1:26 PM) [id number]
[2021-03-12] MEDS ORDERED: CONTRAST GIVEN. MC PRN (13:45)
[2021-03-12] MEDS ORDERED: IOHEXOL 350 MG/ML 100 ML VIAL. IV ONE (13:45)
--- NOTE | 2021-03-12 15:18 | RAD ---
EXAM: CT ANGIOGRAM CHEST, ABDOMEN, AND PELVIS WITH AND WITHOUT CONTRAST INDICATION: Lower abdominal pain, history of abdominal aortic aneurysm repair. COMPARISON: CT angiogram chest 10/20/[address] imaging abdomen and pelvis 04/19/2016 TECHNIQUE: Helical CT of the chest abdomen, and pelvis performed before and after the administration of 90 mL Omnipaque 350 intravenous contrast. Coronal and sagittal 3D MIP reformations were obtained. One or more of the following individualized dose reduction techniques were utilized for this examinat ion: 1. Automated exposure control 2. Adjustment of the mA and/or kV according to patient size 3. Use of iterative reconstruction technique. FINDINGS: Vasculature: There are surgical changes of abdominal aortic aneurysm repair with an aortobiiliac sten t graft. There is no evidence of endoleak. The excluded aneurysm sac measures 6.9 x 6.5 cm, previousl y 8.6 x 8.4 cm. There is mild narrowing of the celiac and renal artery origins. Superior mesenteric a rtery origin is normal in caliber and patent. The inferior mesenteric artery origin is reconstituted from collateral flow. Common, internal, and external iliac arteries are normal in caliber and patent. Visualized portion of the femoral arteries are normal in caliber and patent. The thoracic aorta is tortuous but normal in caliber. There is calcified and noncalcified aortic athe rosclerosis. No aortic dissection. Great vessel origins are patent. Other: The heart is mildly enlarged. There are coronary artery calcifications. No pericardial effusio n. No thoracic lymphadenopathy. Mild atelectasis in the lower lobes. The liver, gallbladder, bile ducts, spleen, and adrenal glands are normal. There is mild pancreatic a trophy. Kidneys are normal in size and enhance symmetrically. There is no hydronephrosis. There is a 5 cm exophytic simple right renal cyst. Ureters, bladder, and prostate gland are normal. Moderate hiatal hernia. No small bowel obstruction. There is sigmoid diverticulosis. Some of the redu ndant sigmoid colon is within a large left inguinal hernia. The hernia sac measures about 10 x 8 x 13 cm. No evidence of complication. There are a few scattered colonic diverticula elsewhere. The append ix is normal. No lymphadenopathy. No free fluid or free air. No acute osseous abnormality. Mild degenerative disc d isease. There is an intramedullary nail in the right femur. 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 IMPRESSION: 1. Interval surgical changes of abdominal aortic aneurysm repair with aortobiiliac stent graft. No ev idence of endoleak or other acute abnormality. The aneurysm sac now measures 6.9 x 6.5 cm, previously 8.6 x 8.4 cm. 2. Large left inguinal hernia containing part of the sigmoid colon. 3. Sigmoid diverticulosis without acute diverticulitis. 4. Moderate hiatal hernia. 5. No acute abnormality in the chest. Electronically signed by: Betty Tom MD (03/12/2021 3:15 PM) [id number]
--- NOTE | 2021-03-12 15:54 | PHYS DOC ---
Past Medical History Past Surgical History: Hip Replacement, Other Additional Past Surgical Histo: aneurysm repair Smoking Status: Never Smoker Alcohol Use: None General Adult EDM: Chief Complaint: TESTICULAR PAIN OR INJURY HPI: HPI: Patient is a 75 year old male who presents to the emergency department concerning swelling to his genitals for the past 10 months. Patient states he has not had the time to be evaluated by his primary care physician, states he became concerned when he was unable to walk related to lower abdominal pain and chest pains or shortness of breath and had to miss work yesterday. Patient d enies any chest pains or difficulty ambulating today. States he does have testicular swelling with pain to palpation and swelling to his lower abdomen, patient reports a AAA repair 3 years ago. Patient currently denies chest pains or shortness of breath. Denies nausea,, vomiting, or diarrhea. Denies seeing blood in his stool or in his urine. Patient denies other physical complaints or physical concerns. Review of Systems: Review of Systems: 14 body systems of review of systems have been reviewed. See HPI for pertinent positives and negative responses, otherwise all other systems are negative, nonpertinent or noncontributory. Constitutional: Negative except as outlined in HPI above. Skin: Negative except as outlined in HPI above. Eyes: Negative except as outlined in HPI above. HENT: Negative except as outlined in HPI above. Respiratory: Negative except as outlined in HPI above. Cardiovascular: Negative except as outlined in HPI above. GI: Negative except as outlined in HPI above. : Negative except as outlined in HPI above. Musculoskeletal: Negative except as outlined in HPI above. Integument: Negative except as outlined in HPI above. Neurologic: Negative except as outlined in HPI above. Endocrine: Negative except as outlined in HPI above. Lymphatic: Negative except as outlined in HPI above. Psychiatric: Negative except as outlined in HPI above. Heart Score: C/O Chest Pain: No Risk Factors: Risk Factors: DM, Current or recent (<one month) smoker, HTN, HLP, family history of CAD, obesity. Risk Scores: Score 0 - 3: 2.5% MACE over next 6 weeks - Discharge Home Score 4 - 6: 20.3% MACE over next 6 weeks - Admit for Clinical Observation Score 7 - 10: 72.7% MACE over next 6 weeks - Early Invasive Strategies Current Medications: Current Medications Medications (Trade) Dose Ordered Sig/Jael Start Time Stop Time Status Last Admin Dose Admin Info (CONTRAST GIVEN -- Rx MONITORING) 1 each PRN DAILY PRN 03/12/21 13:45 03/14/21 13:44 Iohexol (Omnipaque 350 Mg/ml) 90 ml 1X ONCE 03/12/21 13:45 03/12/21 13:46 DC 03/12/21 13:45 90 ML Allergies: Allergies: Allergies Coded Allergies Type Severity Reaction Last Updated Verified No Known Drug Allergies 03/12/21 No Physical Exam: PE: Constitutional: Well developed, well nourished, no acute distress, non-toxic appearance. 75-year-old male in no apparent distress. HENT: Normocephalic, atraumatic. Eyes: Conjunctiva normal, no discharge. Neck: Normal range of motion, no stridor. Cardiovascular: No cyanosis appreciated, distal cap refill less than 2 seconds. Heart sounds irregular pattern with rate in 60s. Lungs & Thorax: Patient is in no respiratory distress, no audible adventitious lung sounds appreciated. Lung sounds clear to auscultate all lung rincon. Abdomen: Tender to palpation near pubis, swelling with genital sac swelling, no lesions or rashes to the genitals appreciated. Skin: Warm, dry, no erythema, no rash. Back: No tenderness, no deformities. Extremities: No tenderness, no cyanosis, no clubbing, ROM intact, 1+ bilateral lower extremity edema. Neurologic: Alert and oriented X 3, normal motor function, normal sensory function, no focal deficits noted. Psychologic: Affect normal, judgement normal, mood normal. Current Patient Data: Labs: Laboratory Tests Test 03/12/21 11:57 03/12/21 12:49 Urine Collection Type Unknown Urine Color Yellow Urine Clarity Clear Urine pH 6.0 (<5.0-8.0) Urine Specific [place] <=1.005 (1.000-1.030) Urine Protein Negative mg/dL (NEG-TRACE) Urine Glucose (UA) Negative mg/dL (NEG) Urine Ketones (Stick) Negative mg/dL (NEG) Urine Blood Negative (NEG) Urine Nitrite Negative (NEG) Urine Bilirubin Negative (NEG) Urine Urobilinogen Dipstick 0.2 mg/dL (0.2 mg/dL) Urine Leukocyte Esterase Negative (NEG) Urine RBC Occ /HPF (0-2) Urine WBC Occ /HPF (0-4) Urine Squamous Epithelial Cells Few /LPF Urine Bacteria 0 /HPF (0-FEW) White Blood Count 6.6 x10^3/uL (4.0-11.0) Red Blood Count 4.41 x10^6/uL (4.30-5.70) Hemoglobin 14.2 g/dL (13.0-17.5) Hematocrit 41.8 % (39.0-53.0) Mean Corpuscular Volume 95 fL (79-100) Mean Corpuscular Hemoglobin 32 pg (25-35) Mean Corpuscular Hemoglobin Concent 34 g/dL (31-37) Red Cell Distribution Width 13.9 % (11.5-14.5) Platelet Count 155 x10^3/uL (140-400) Neutrophils (%) (Auto) 55 % (31-73) Lymphocytes (%) (Auto) 31 % (24-48) Monocytes (%) (Auto) 11 % (0-9) H Eosinophils (%) (Auto) 2 % (0-3) Basophils (%) (Auto) 1 % (0-3) Neutrophils # (Auto) 3.7 x10^3/uL (1.8-7.7) Lymphocytes # (Auto) 2.0 x10^3/uL (1.0-4.8) Monocytes # (Auto) 0.8 x10^3/uL (0.0-1.1) Eosinophils # (Auto) 0.1 x10^3/uL (0.0-0.7) Basophils # (Auto) 0.1 x10^3/uL (0.0-0.2) D-Dimer (Qi) 1.89 ug/mlFEU (0.00-0.50) H Sodium Level 140 mmol/L (136-145) Potassium Level 4.1 mmol/L (3.5-5.1) Chloride Level 107 mmol/L (98-107) Carbon Dioxide Level 29 mmol/L (21-32) Anion Gap 4 (6-14) L Blood Urea Nitrogen 13 mg/dL (8-26) Creatinine 0.7 mg/dL (0.7-1.3) Estimated GFR (Cockcroft-Gault) 109.1 BUN/Creatinine Ratio 19 (6-20) Glucose Level 92 mg/dL (70-99) Calcium Level 8.7 mg/dL (8.5-10.1) Total Bilirubin 0.4 mg/dL (0.2-1.0) Aspartate Amino Transferase (AST) 18 U/L (15-37) Alanine Aminotransferase (ALT) 24 U/L (16-63) Alkaline Phosphatase 123 U/L (46-116) H Creatine Kinase 38 U/L (39-308) L Creatine Kinase MB (Mass) 1.2 ng/mL (0.0-3.6) Creatine Kinase MB Relative Index % (0-4) Troponin I High Sensitivity 9 ng/L (4-75) NG-Ubn-Z-Type Natriuretic Peptide 1266 pg/mL (0-449) H Total Protein 6.8 g/dL (6.4-8.2) Albumin 3.2 g/dL (3.4-5.0) L Albumin/Globulin Ratio 0.9 (1.0-1.7) L Laboratory Tests 03/12/21 12:49 Laboratory Tests 03/12/21 12:49 Vital Signs: Vital Signs Date Time Temp Pulse Resp B/P (MAP) Pulse Ox O2 Delivery O2 Flow Rate FiO2 03/12/21 13:34 95 14 147/91 (109) 97 Room Air 03/12/21 11:58 97.3 97.3 EKG: EKG: EKG performed at 1327 by ED nursing staff shows atrial fibrillation controlled rate of 61 bpm, QTc interval 0.422, no acute STEMI, no ACS, no acute ischemia appreciated, EKG interpreted by ED attending physician Dr. Esparza. Radiology/Procedures: Radiology/Procedures: PATIENT: SOFIA CHU ACCOUNT: [id number] : 12/19/1944 LOCATION: ER AGE: 76 SEX: M EXAM STATUS: PRE ER ORD. PHYSICIAN: SARABJIT VILLANUEVA APRN REASON: Abdominal discomfort, AAA history PROCEDURE: CHEST AP ONLY XR CHEST 1V History: Abdominal discomfort, AAA history. Comparison: None. Technique: Portable AP radiograph of the chest. Findings: The lungs are adequately inflated. No focal airspace consolidation, pleural effusion or pneumothorax. Cardiomegaly with calcified uncoiled aortic arch. Soft tissues are unremarkable. Degenerative changes of the shoulders. Impression: 1. Cardiomegaly. Electronically signed by: Clinton Dickinson MD (03/12/2021 1:26 PM) [id number] PATIENT: SOFIA CHU ACCOUNT: [id number] : 1945 LOCATION: ER AGE: 75 SEX: M EXAM STATUS: REG ER ORD. PHYSICIAN: SARABJIT VILLANUEVA APRN REASON: Lower abdominal discomfort, history of AAA repair PROCEDURE: CT ANGIO CHEST ABD PELVIS EXAM: CT ANGIOGRAM CHEST, ABDOMEN, AND PELVIS WITH AND WITHOUT CONTRAST INDICATION: Lower abdominal pain, history of abdominal aortic aneurysm repair. COMPARISON: CT angiogram chest 10/20/[address] imaging abdomen and pelvis 04/19/2016 TECHNIQUE: Helical CT of the chest abdomen, and pelvis performed before and after the administration of 90 mL Omnipaque 350 intravenous contrast. Coronal and sagittal 3D MIP reformations were obtained. One or more of the following individualized dose reduction techniques were utilized for this examination: 1. Automated exposure control 2. Adjustment of the mA and/or kV according to patient size 3. Use of iterative reconstruction technique. FINDINGS: Vasculature: There are surgical changes of abdominal aortic aneurysm repair with an aortobiiliac stent graft. There is no evidence of endoleak. The excluded aneurysm sac measures 6.9 x 6.5 cm, previously 8.6 x 8.4 cm. There is mild narrowing of the celiac and renal artery origins. Superior mesenteric artery origin is normal in caliber and patent. The inferior mesenteric artery origin is reconstituted from collateral flow. Common, internal, and external iliac arteries are normal in caliber and patent. Visualized portion of the femoral arteries are normal in caliber and patent. The thoracic aorta is tortuous but normal in caliber. There is calcified and noncalcified aortic atherosclerosis. No aortic dissection. Great vessel origins are patent. Other: The heart is mildly enlarged. There are coronary artery calcifications. No pericardial effusion. No thoracic lymphadenopathy. Mild atelectasis in the lower lobes. The liver, gallbladder, bile ducts, spleen, and adrenal glands are normal. There is mild pancreatic atrophy. Kidneys are normal in size and enhance symmetrically. There is no hydronephrosis. There is a 5 cm exophytic simple right renal cyst. Ureters, bladder, and prostate gland are normal. Moderate hiatal hernia. No small bowel obstruction. There is sigmoid di verticulosis. Some of the redundant sigmoid colon is within a large left inguinal hernia. The hernia sac measures about 10 x 8 x 13 cm. No evidence of complication. There are a few scattered colonic diverticula elsewhere. The appendix is normal. No lymphadenopathy. No free fluid or free air. No acute osseous abnormality. Mild degenerative disc disease. There is an intramedullary nail in the right femur. 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 IMPRESSION: 1. Interval surgical changes of abdominal aortic aneurysm repair with aortobiiliac stent graft. No evidence of endoleak or other acute abnormality. The aneurysm sac now measures 6.9 x 6.5 cm, previously 8.6 x 8.4 cm. 2. Large left inguinal hernia containing part of the sigmoid colon. 3. Sigmoid diverticulosis without acute diverticulitis. 4. Moderate hiatal hernia. 5. No acute abnormality in the chest. Electronically signed by: Betty Tom MD (03/12/2021 3:15 PM) [id number] PATIENT: SOFIA CHU ACCOUNT: [id number] : 12/19/1944 LOCATION: ER AGE: 76 SEX: M EXAM STATUS: PRE ER ORD. PHYSICIAN: SARABJIT VILLANUEVA APRN REASON: Testicular swelling PROCEDURE: TESTICULAR/SCROTUM CLINICAL HISTORY: Reason: Testicular swelling / Spl. Instructions: / History: COMPARISON: None available. TECHNIQUE: Ultrasound images of the scrotum was performed with lyle-scale, color and spectral Doppler imaging. FINDINGS: The right testis measures 4.3 x 2.2 x 2.2 cm. The left testis measures 4.2 x 2.9 x 3.5 cm. There is no intratesticular abnormality. Testicular vascularity is symmetric and within normal limits. The epididymis is normal in appearance bilaterally. There are small left greater than right hydroceles. IMPRESSION: Small bilateral hydroceles. Otherwise normal scrotal ultrasound. Electronically signed by: Betty Tom MD (03/12/2021 1:22 PM) [id number] Course & Med Decision Making: Course & Med Decision Making Pertinent Labs and Imaging studies reviewed. (See chart for details) 75-year-old male, vital signs reviewed, presents emergency department concerning chest pains abdominal pains and abdominal swelling genital swelling for the past 8 months. Patient's physical examination concerning for inguinal hernia versus testicular swelling, very large abdominal mass in the inguinal area with positive bowel sounds, patient does have history of AAA repair, will order CT angio chest abdomen pelvis to rule out AAA repair leak, sonogram of testicles and scrotum. EKG, lab work. Patient's serum lab work unremarkable, except for elevated proBNP, patient does have lower extremity edema, this is most likely related to his extensive CHF history, patient remains in no apparent distress, in no respiratory distress, lung sounds clear to auscultate all lung rincon. EKG shows controlled atrial fibrillation, scrotal sonogram nonconcerning for torsion or other testicular abnormality, CT chest abdomen pelvis reveals left inguinal hernia with sigmoid colon involvement. Nonconcerning for AAA repair leak. Discussed findings with patient, discussed with patient need to take his prescribed Lasix and metoprolol as directed by his coloring room worker Dr. Sosa, follow-up with general surgeon to have hernia examined and surgically repaired, strict return to ER precautions and concerns, patient gave verbal understanding of and is amenable to ED discharge planning. Discussed with the patient all findings and diagnostic testing as well as the need to follow-up with their primary care provider for further evaluation and treatment or return to the ED if any new or worsening symptoms. Strict return precautions were also discussed at length, the patient voiced understanding and agreement with the discharge planning. The patient was nontoxic in appearance, in no apparent distress, and hemodynamically stable at the time of disposition. Hamzah Disclaimer: Hamzah Disclaimer: This electronic medical record was generated, in whole or in part, using a voice recognition dictation system. Departure Departure Impression: Primary Impression: Hernia Additional Impressions: Congestive heart failure Qualified Codes: I50.9 - Heart failure, unspecified Swelling of lower extremity Disposition: HOME / SELF CARE / HOMELESS Condition: GOOD Referrals: BHAVNA RICHEY (PCP) CYRUS ORTIZ MD Patient Instructions: Hernia Additional Instructions: You were seen today in the emergency department for swelling of your lower abdomen and swelling of your lower extremities. A sonogram of your testicles did not show any testicular anomalies or abnormalities however the CT of your chest abdomen pelvis to evaluate your AAA repair did show a large hernia. I have given you a recommendation for a surgeon to follow-up with his name is Dr. Ortiz. When you call to make the appointment tell them you have a large left inguinal hernia containing part of your sigmoid colon. Your laboratory work is suggestive that you have not been taking your metoprolol or your Lasix. You have confirm this. As we discussed please make an appointment to see your coloring room worker Dr. Sosa so that he can evaluate for any future medication changes. Please take all of your medications as directed by your coloring room worker. Follow-up with your primary care physician soon. Return to the emergency department for worsening symptoms or other concerns. Thank you for visiting our Emergency Department. It was a pleasure taking care of you today in the emergency department and we appreciate you trusting us with your care. If any additional problems come up don't hesitate to return to visit us. Please follow up with your primary care provider so they can plan additional care if needed and know about the problem that you had. If symptoms worsen come back to the Emergency Department. Any concerning symptoms that start such as chest pain, shortness of air, weakness or numbness on one side of the body, running high fevers or any other concerning symptoms return to the ER. EMERGENCY DEPARTMENT GENERAL DISCHARGE INSTRUCTIONS Thank you for coming to [facility] Emergency Department (ED) today and trusting us with you care. We trust that you had a positive experience in our Emergency Department. If you wish to speak to the department management, you may call the Director at [phone]. YOUR FOLLOW UP INSTRUCTIONS ARE FOLLOWS: 1. Do you have a private Doctor? If you do not have a private doctor, please ask for a resource list of physicians or clinics that may be able to assist you with follow up care. 2. The Emergency Physicain has interpreted your x-rays. The X-Ray specialist will also review them. If there is a change in the findings, you will be notified in 48 hours when at all possible. 3. A lab test or culture has been done, your results will be reviewed and you will be notified if you need a change in treatment. ADDITIONAL INSTRUCTIONS AND INFORMATION: 1. Your care today has been supervised by a physician who is specially trained in emergency care. Many problems require more than one evaluation for a complete diagnosis and treatment. We recommend that you schedule your follow up appointment as recommended to ensure complete treatment of you illness or injury. If you are unable to obtain follow up care and continue to have a problem, or if your condition worsens, we recommend that you return to the ED. 2. We are not able to safely determine your condition over the phone nor are we able to give sound medical advice over the phone. For these safety reasons, if you call for medical advice we will ask you to come to the ED for further evaluation. 3. If you have any questions regarding these discharge instructions please call the ED at [phone]. SAFETY INFORMATION: In the interest of safety, wellness, and injury prevention; we encourage you to wear your sealbelt, if you smoke; quite smoking, and we encourage family to use a protective helmet for bicycling and other sporting events that present an increased risk for head injury. IF YOUR SYMPTOMS WORSEN OR NEW SYMPTOMS DEVELOP, OR YOU HAVE CONCERNS ABOUT YOUR CONDITION; OR IF YOUR CONDITION WORSENS WHILE YOU ARE WAITING FOR YOUR FOLLOW UP APPOINTMENT; EITHER CONTACT YOUR PRIMARY CARE DOCTOR, THE PHYSICIAN WHOSE NAME AND NUMBER YOU WERE GIVEN, OR RETURN TO THE ED IMMEDIATELY. SARABJIT VILLANUEVA BULB WEEDER Mar 12, 2021 15:54
[2021-03-12 16:40] VITALS: BP 168/85
--- NOTE | 2021-03-13 05:51 | EKG ---
[facility] [address] [place] [address] Test Date: 2021-03-12 Test Time: 13:27:47 Pat Name: SOFIA CHU Department: Room: Gender: M Special Police Officer: : 1944-12-19 Requested By: SARABJIT VILLANUEVA Order Number: [id number] Reading MD: Measurements Intervals [place] Rate: 61 P: MA: QRS: -11 QRSD: 96 T: -3 QT: 418 QTc: 422 Interpretive Statements IRREGULAR RHYTHM, NO P-WAVE FOUND LEFTWARD AXIS NO SPECIFIC ECG ABNORMALITIES RI6.02 No previous ECG available for comparison
== END 2021-03-12 16:43 | disposition home or self-care (01) ==
LOC: ER 11:20 → MERGE 11:20 → ER 16:43
DX: K44.9 Diaphragmatic hernia without obstruction or gangrene (principal); I50.9 Heart failure, unspecified; K57.30 Diverticulosis of large intestine without perforation or abscess without bleeding; K40.90 Unilateral inguinal hernia, without obstruction or gangrene, not specified as recurrent; N43.3 Hydrocele, unspecified; N28.1 Cyst of kidney, acquired; M16.0 Bilateral primary osteoarthritis of hip; Z96.649 Presence of unspecified artificial hip joint
CPT/HCPCS: 36415; 71045; 71275; 74174; 76870; 80053; 81001; 82553; 83880; 84484; 85025; 85379; 87491; 87591; 93005; 99285; Q9967

== ENCOUNTER 2021-03-19 11:06 | Observation (INO) | payer OTHER, MEDICARE ==
[~2021-03-19] VITALS: Ht 175.3 cm; Wt 113.8 kg
[~2021-03-19 11:06] MED LIST changes: +HYDROmorphone 2 MG/ML VIAL IVP PRN; +MORPHINE SULFATE 2 MG/ML INJ. IVP PRN; +PROCHLORPERAZINE 10 MG/2 ML VIAL. IVP PRN; +fentaNYL PF VIAL 100 MCG/2 ML VIAL IVP PRN
[2021-03-19 12:25] VITALS: BP 190/81
[2021-03-19] MEDS ORDERED: APIX5TAB PO (12:36)
[2021-03-19] MEDS ORDERED: METO25TA2 PO (12:37)
[2021-03-19] MEDS ORDERED: FURO-69 PO (12:39)
[2021-03-19] MEDS ORDERED: ASPI-886 PO (12:40)
[2021-03-19] MEDS: IV RINGERS,LACTATED 1000ML 1,000 ML IV SCH ×2 (12:43→17:02)
[2021-03-19] MEDS ORDERED: BUPIVACAINE-EPI 0.5% 30 ML VIAL KIT. ONE (13:19)
[2021-03-19] MEDS ORDERED: PROPOFOL 10 MG/ML (20ML) VIAL. IV ONE (13:42)
[2021-03-19] MEDS ORDERED: ONDANSETRON PF 4 MG/2 ML VIAL. ONE (13:42)
[2021-03-19] MEDS ORDERED: ROCURONIUM 50 MG/5 ML VIAL. ONE (13:42)
[2021-03-19] MEDS ORDERED: LIDOCAINE 2% PF 5 ML VIAL. ONE (13:42)
[2021-03-19] MEDS ORDERED: SEVOFLURANE 31 TO 60 MINUTES. IH ONE ×2 (13:42→14:32)
[2021-03-19] MEDS ORDERED: fentaNYL PF VIAL 100 MCG/2 ML VIAL ONE (13:42)
[2021-03-19] MEDS ORDERED: DEXAMETHASONE SOD PHOS 4 MG/ML VIAL ONE (13:42)
[2021-03-19] MEDS ORDERED: SUCCINYLCHOLINE 200 MG/10 ML VIAL. ONE (13:43)
[2021-03-19] MEDS ORDERED: ePHEDrine PF IN SALINE 50 MG/10 ML SYRINGE. IV ONE (14:17)
[2021-03-19] MEDS ORDERED: PHENYLEPHRINE in 0.9% NACL PF 1 MG/10 ML SYRINGE. IV ONE (14:20)
[2021-03-19] MEDS ORDERED: HYDROmorphone 2 MG/ML VIAL ONE (14:32)
[2021-03-19] MEDS ORDERED: GLYCOPYRROLATE 1 MG/5 ML VIAL. ONE (16:09)
[2021-03-19] MEDS ORDERED: NEOSTIGMINE METHYLSULFATE 5 MG/5 ML SYRINGE. ONE (16:10)
[2021-03-19] MEDS ORDERED: SEVOFLURANE > 120 MINUTES. IH ONE (16:24)
--- NOTE | 2021-03-19 16:25 | PDOC4 ---
Operative Note Operative Note Operative Note: Preoperative Diagnosis: Large left inguinal hernia Postoperative Diagnosis: Same Procedure: Left inguinal hernia pair with mesh Surgeon: Marcelo Lockstitch Sleeve Maker: Julito Major MS 4 Anesthesia: General EBL: 25 mL Specimen: None Drains: None Complications: None Indication: The patient is a 75-year-old gentleman who is referred with a large left inguinal hernia containing some sigmoid colon. He was offered surgical repair. The risks of surgery were discussed which include bleeding, infection, visceral injury, pain, hernia recurrence, urinary retention, potential need for additional surgery procedure. He understands and would like to proceed. Description: The patient was taken the operating and placed supine on the operating table. General anesthesia was performed. The left groin was shaved prepped with ChloraPrep and draped in a standard surgical manner. An incision was made in the skin lines with a scalpel. Cautery dissection was carried down to the external beak aponeurosis. The aponeurosis was opened down to the exter nal ring. In the inguinal canal there was bowel present likely sigmoid colon. We were able to manually reduce the contents. The hernia was quite large which obscured some of the tissue planes. We were able to gradually identify a redundant indirect hernia sac. This was freed from the surrounding cord structures. The vas deferens and other structures were encircled with a Lianne drain. The hernia sac was mobilized down to its neck and all the contents were reduced. The defect was filled with an extra-large Phasix mesh plug. The plug was sutured around its periphery with 2-0 Vicryl. The entire inguinal floor was then reinforced with a Prolene mesh patch. The patch was sutured to the inguinal floor with 2-0 Vicryl. A slit was made to accommodate cord structures. The external oblique was closed over the mesh with 2-0 Vicryl. The subcutaneous tissue was approximated with 3-0 Vicryl. The skin was closed with 4-0 Monocryl. The incision was infiltrated with half percent Marcaine with epinephrine. Steri-Strips and a sterile dressing were applied. The patient tolerated procedure well and was sent to the recovery room in stable condition. At the end the case all counts were correct. CYRUS ORTIZ MD Mar 19, 2021 16:25
[2021-03-19] MEDS ORDERED: HYDROmorphone 2 MG/ML VIAL IV PRN (16:30)
[2021-03-19] MEDS ORDERED: IV NORMAL SALINE 1000ML BAG 1,000 ML IV SCH (16:30)
[2021-03-19] MEDS: IV 1/2 NORMAL SALINE 1,000 ML IV SCH (16:30)
[2021-03-19] MEDS ORDERED: ONDANSETRON PF 4 MG/2 ML VIAL. IVP PRN (16:30)
[2021-03-19] MEDS ORDERED: NALOXONE 0.4 MG/ML VIAL. IV PRN (16:30)
[2021-03-19] MEDS ORDERED: 0.9 % SODIUM CHLORIDE 10 ML DISP.SYRIN. IV PRN (16:30)
[2021-03-19] MEDS ORDERED: HYDROcodone/APAP 5/325MG 1 TAB TABLET PO PRN (16:30)
[2021-03-19] MEDS: HYDROcodone/APAP 5/325MG 1 TAB TABLET PO PRN (18:00)
[2021-03-19 19:00] VITALS: BP 118/55
[2021-03-19] MEDS: APIXABAN 5 MG TABLET. PO SCH (21:26)
[2021-03-19 23:00] VITALS: BP 124/77
[2021-03-20] MEDS: HYDROcodone/APAP 5/325MG 1 TAB TABLET PO PRN (00:18)
[2021-03-20 03:00] VITALS: BP 142/78
[2021-03-20] MEDS: IV 1/2 NORMAL SALINE 1,000 ML IV SCH (04:51)
[2021-03-20 07:00] VITALS: BP 142/66
[2021-03-20] MEDS: APIXABAN 5 MG TABLET. PO SCH (08:39)
[2021-03-20] MEDS ORDERED: ASPIRIN ENTERIC COATED 81 MG TABLET.DR. PO SCH (09:00)
[2021-03-20] MEDS ORDERED: METOPROLOL SUCC 24HR ER 25 MG TAB.ER.24H. PO SCH (09:00)
[2021-03-20] MEDS ORDERED: FLU VACC QUAD 21-22 (6MOS+) PF 0.5 ML SYRINGE. VAX IM ONE (09:00)
--- NOTE | 2021-03-20 10:27 | NUR ---
SW following. Discussed with RN, pt from home alone, room air, regular diet. Pt had surgery 03/19/21, and is hoping to discharge home today. RN advised no SW needs at this time. SW will continue to follow.
[2021-03-20 11:00] VITALS: BP 175/55
--- NOTE | 2021-03-20 11:02 | PDOC ---
SURGICAL PROGRESS NOTE DATE: 03/20/21 TIME: 11:00 Subjective up to chair sore throat, otherwise feeling well tolerating diet urinating Vital Signs Vital Signs Date Time Temp Pulse Resp B/P (MAP) Pulse Ox O2 Delivery O2 Flow Rate FiO2 03/20/21 08:41 69 142/66 03/20/21 07:00 97.7 18 97 Room Air 97.7 03/19/21 18:16 12.0 I&O Intake and Output 03/20/21 07:00 Intake Total 1800 ml Output Total 800 ml Balance 1000 ml Intake Oral 750 ml IV Total 1050 ml Output Urine Total 775 ml Estimated Blood Loss 25 ml General: Alert, Oriented X3, Cooperative Abdomen: Soft, Other (incision dressing dry) Assessment/Plan LIH repair DC home Justicifation of Admission Dx: Justifications for Admission: Justification of Admission Dx: Yes Comments: MARIA CRANDALL APRN Mar 20, 2021 11:02
[2021-03-20] MEDS ORDERED: HYDR-2761 PO (11:05)
--- NOTE | 2021-03-20 11:07 | DISCH ---
DISCHARGE INSTRUCTIONS Condition on Discharge Condition on Discharge: Stable Activity After Discharge Activity Instructions for Disc: Activity as tolerated Other activity instructions: can shower, can remove dressing Bathing Instructions: No Tub Bath until see Lifting Instructions after Dis: No heavy lifting, No pulling or pushing, Do not lift >10 pounds Driving Instructions after Dis: Do not drive (while taking pain medication), Other, see below Weight Bearing Status after Di: As tolerated Diet after Discharge Diet after Discharge: Cardiac Wound Incision Care Wound/Incision Care: May get incision wet, No wound care needed Contacting the after DC Call your doctor for: If your condition worsens Follow-Up Follow up with: Dr Robertson 2 weeks, call to schedule [phone] MARIA CROWELL MEDICAL CODING AUDITOR Mar 20, 2021 11:07
[2021-03-21] MEDS ORDERED: FUROSEMIDE 20 MG TABLET PO SCH (09:00)
== END 2021-03-20 11:54 | disposition home or self-care (01) ==
LOC: SURG 11:06 → 4 NORTH 16:25
PROVIDERS: ADMIT Surgery; ATTEND Surgery
DX: K40.90 Unilateral inguinal hernia, without obstruction or gangrene, not specified as recurrent (principal); Z23 Encounter for immunization; Z71.85 Encounter for immunization safety counseling
CPT/HCPCS: 49505; 90471; 90686; A4364; A4930; A6402; C1781; G0378; G0379; J0330; J0690; J1100; J1170; J2370; J2405; J2704; J2710; J3010; J3490; A4452

== ENCOUNTER → 2021-09-07 | Outpatient (CLI) | payer MEDICARE ==
[~2021-09-07] MED LIST changes: +APIX5TAB PO; +ASPI-886 PO; +FURO-69 PO; +HYDR-2761 PO; -HYDROmorphone 2 MG/ML VIAL IVP PRN; +METO25TA2 PO; -MORPHINE SULFATE 2 MG/ML INJ. IVP PRN; -PROCHLORPERAZINE 10 MG/2 ML VIAL. IVP PRN; -fentaNYL PF VIAL 100 MCG/2 ML VIAL IVP PRN
[2021-09-07 14:15] LABS: BASO # 0.1 x10^3/uL (0.0-0.2); BASO % 1 % (0-3); EOS # 0.2 x10^3/uL (0.0-0.7); EOS % 3 % (0-3); HEMATOCRIT 41.9 % (39.0-53.0); HEMOGLOBIN 14.2 g/dL (13.0-17.5); LYMPH # 1.9 x10^3/uL (1.0-4.8); LYMPH % 32 % (24-48); MEAN CORPUSCULAR HEMOGLOBIN 32 pg (25-35); MEAN CORPUSCULAR HGB CONC 34 g/dL (31-37); MEAN CORPUSCULAR VOLUME 93 fL (79-100); MONO # 0.5 x10^3/uL (0.0-1.1); MONO % 9 % (0-9); NEUT # 3.4 x10^3/uL (1.8-7.7); NEUT % 56 % (31-73); PLATELET COUNT 234 x10^3/uL (140-400); RED BLOOD COUNT 4.51 x10^6/uL (4.30-5.70); RED CELL DISTRIBUTION WIDTH 13.6 % (11.5-14.5); WHITE BLOOD COUNT 6.1 x10^3/uL (4.0-11.0)
[2021-09-07 14:53] LABS: ALBUMIN 3.6 g/dL (3.4-5.0); CALCIUM 9.4 mg/dL (8.5-10.1); CREATININE 0.8 mg/dL (0.7-1.3); TOTAL PROTEIN 7.3 g/dL (6.4-8.2)
[2021-09-07 14:54] LABS: GFR 93.7; POTASSIUM 4.2 mmol/L (3.5-5.1); TOTAL BILIRUBIN 0.4 mg/dL (0.2-1.0)
--- NOTE | 2021-09-10 09:09 | CARD ---
MR#: [id number] Date of Study: 09/07/2021 Ordering Physician: KHUSHI FISHER, Referring Physician: KHUSHI FISHER, Tech: Ofelia Carlton [facility] APPROVED REPORT EXAM: Two-dimensional and M-mode echocardiogram with Doppler and color Doppler. Other Information Quality : FairHR: 54bpm Rhythm : BradycardiaTechnically limited study due to body habitus and smoking. INDICATION Atrial Fibrillation RISK FACTORS Smoking 2D DIMENSIONS RVDd3.0 (2.9-3.5cm)IVSd1.3 (0.7-1.1cm) LVDd4.7 (3.9-5.9cm)PWd1.2 (0.7-1.1cm) LA Lsltgk15 (18-58mL)LVDs3.5 (2.5-4.0cm) FS (%) 26.2 %SV53.8 ml LVEF(%)51.4 (>50%) Aortic Valve AoV Peak Dariusz.151.6cm/Chang Peak GR.9.2mmHg LVOT Peak Dariusz.82.6cm/Melvin P 1/2 [id number] Mitral Valve MV E Wvtubskv06.1cm/sMV DECEL [id number] MV A Pegqlbtg50.6cm/sMV [id number] E/A Ratio3.6MVA (PHT)3.27cm2 Tricuspid Valve TR P. Dbrnrbqc943qm/sTR Peak Gr.38mmHg LEFT VENTRICLE The left ventricle is normal size. There is mild concentric left ventricular hypertrophy. The left ve ntricular systolic function is normal. The ejection fraction is estimated at 50-55%. There is normal LV segmental wall motion. Diastolic function unable to be assessed due to atrial fibrillation. No lef t ventricle thrombus noted on this study. There is no ventricular septal defect visualized. There is no left ventricular aneurysm. There is no mass noted in the left ventricle. RIGHT VENTRICLE The right ventricle is normal size. There is normal right ventricular wall thickness. The right ventr icular systolic function is normal. ATRIA The left atrium is mildly dilated. The right atrium size is normal. The interatrial septum is intact with no evidence for an atrial septal defect or patent foramen ovale as noted on 2-D or Doppler imagi ng. AORTIC VALVE The aortic valve is normal in structure and function. Doppler and Color Flow revealed trace aortic re gurgitation. There is no significant aortic valvular stenosis. There is no aortic valvular vegetation . MITRAL VALVE The mitral valve is normal in structure and function. There is no evidence of mitral valve prolapse. There is no mitral valve stenosis. Doppler and Color Flow revealed no mitral valve regurgitation note d. TRICUSPID VALVE The tricuspid valve is normal in structure and function. Doppler and Color Flow revealed mild to mode rate tricuspid regurgitation. There is no tricuspid valve prolapse or vegetation. There is no tricusp id valve stenosis. PULMONIC VALVE The pulmonary valve is normal in structure and function. Doppler and Color Flow revealed no pulmonic valvular regurgitation. There is no pulmonic valvular stenosis. GREAT VESSELS The aortic root is normal in size. The ascending aorta is normal in size. The pulmonary artery is nor mal. The IVC is normal in size and collapses >50% with inspiration. PERICARDIAL EFFUSION There is no pleural effusion. There is no evidence of significant pericardial effusion. Critical Notification Critical Value: No <Conclusion> The left ventricular systolic function is normal. The ejection fraction is estimated at 50-55%. There is normal LV segmental wall motion. Mild to moderate tricuspid regurgitation. There is no evidence of significant pericardial effusion. Signed by : Jorge Werner, Electronically Approved : 09/10/2021 09:08:35
== END ==
LOC: ECHO 12:45
PROVIDERS: ATTEND Internal Medicine Cardiovascular Disease
DX: I07.1 Rheumatic tricuspid insufficiency (principal); I48.91 Unspecified atrial fibrillation
CPT/HCPCS: 36415; 80053; 83880; 85025; 93306; C8929